=== PATIENT | female | born 1980 | race Caucasian/White ===

== ENCOUNTER 2017-07-25 18:11 | Inpatient (IN) | payer OTHER, SELFPAY ==
[2017-07-25 18:33] VITALS: BP 156/98
[2017-07-25] MEDS: miSOPROStol 25 MCG TABLET VAG (21:45)
[2017-07-25 23:13] LABS: Hematocrit 35.2 % (36-46); Hemoglobin 11.9 g/dL (12.0-16.0); Mean Corpuscular HGB Conc 33.8 % (30-36); Mean Corpuscular Volume 91.7 fL (80-100); Platelet Count 166 X10^3/uL (150-400); Red Blood Cell Count 3.84 X10^6/uL (4.0-5.2); Red Cell Distribution Width 14.6 % (11.6-14.8); White Blood Cell Count 9.1 X10^3/uL (4.5-11.0)
[2017-07-26] MEDS: HYDRALAZINE 20 MG/ML VIAL 5 MG IV ×2 (03:20→10:53)
[2017-07-26] MEDS: LACTATED RINGERS 1,000 ML 100 ML IV ×2 (06:01→07:04)
[2017-07-26] MEDS: OXYTOCIN PREMIX 30 UNIT/500 ML PLAST..BAG IV (09:55)
[2017-07-26] MEDS: IBUPROFEN 600 MG TABLET PO ×2 (16:53→22:43)
[2017-07-26] MEDS: LABETALOL 100 MG TABLET PO (20:50)
[2017-07-26] MEDS: DERMOPLAST SPRAY 20% 60 ML 1 SPRAY TOP (22:47)
[2017-07-27 05:48] LABS: Add Manual Diff / Slide Review NO; Basophils Percent Auto 0.3 % (0-2); Eosinophils Percent Auto 0.7 % (2-4); Hematocrit 26.6 % (36-46); Lymphocytes Percent Auto 19.1 % (25-40); Mean Corpuscular Hemoglobin 30.9 PG (26-34); Mean Corpuscular Volume 91.1 fL (80-100); Monocytes Percent Auto 6.1 % (3-14); Neutrophils Absolute Auto 8700 /uL (3000-5900); Neutrophils Percent Auto 73.8 % (50-75); Platelet Count 144 X10^3/uL (150-400); Red Blood Cell Count 2.91 X10^6/uL (4.0-5.2); Red Cell Distribution Width 14.7 % (11.6-14.8); White Blood Cell Count 11.8 X10^3/uL (4.5-11.0)
[2017-07-27 05:59] VITALS: TEMP 37
[2017-07-27] MEDS: IBUPROFEN 600 MG TABLET PO ×2 (05:59→14:21)
[2017-07-27] MEDS: LABETALOL 100 MG TABLET PO (08:47)
[2017-07-27] MEDS: PRENATAL VIT,CALC/IRON/FOLIC 1 TABLET 1 TAB PO (08:47)
[2017-07-27] MEDS: DOCUSATE 250 MG CAPSULE PO (08:49)
[2017-07-27 16:35] VITALS: BP 111/73; PULSE 82; RESP 16; TEMP 36.3
[2017-07-27] MEDS: MEASLES,MUMPS,RUBELLA VACC/PF 0.5 ML VIAL SUBCUT (17:55)
--- NOTE | 2017-07-28 09:20 | PM.OBDS.1 ---
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 Patient presented on the evening of 07/25/2017 for cervical ripening with Cytotec. She received 1 dose of 25 mcg intravaginally. By the morning of 07/26/2017 patient was 6 cm dilated. She had received an epidural overnight for pain management. Artificial rupture of membranes was performed at 9:47 a.m. on 07/26/2017. The patient progressed to complete dilation at 11:25 a.m.. After 2 and 0.5 hr of pushing and making very little progress, a vacuum was applied and with 2 contractions the vertex delivered without complication. She had a second-degree laceration which was repaired. Her course was unremarkable and she was discharged home on day # 1 which was 07/27/2017. She is to follow up at 6 weeks. She had some elevated blood pressure at the end of the , through the labor, and . She was started on labetalol 100 mg p.o. b.i.d.. She will continue this for at least the next 2 weeks. Peripartum Data Infant Delivery Method: Assisted Delivery (Vacuum assist) Laceration description: Perineal - 2nd Degree (2nd degree vaginal as well) Procedures: Vacuum assisted vaginal delivery Second-degree vaginal/perineal laceration repair Epidural analgesia Cervical ripening with Cytotec Augmentation of labor with Pitocin complications: none 1: Gender: Female (8 lb 8.65 oz, Apgars 8 at 1 min and 9 at 5 min) Disposition of : home Discharge Diagnosis (1) 40 weeks gestation of : Status: Acute (2) Status post vacuum-assisted vaginal delivery: Status: Acute (3) Elective induction of labor planned: Status: Acute Status at Discharge Functional status at discharge: independent ambulation Overall status at discharge: patient is progressing back to baseline Time Spent with Patient Total time spent providing and/or coordinating discharge services: Less than 30 minutes Objective Labs Result Diagrams: 07/27/17 05:30 Discharge Plan Discharge Plan Patient Disposition: Home, Self-Care Discharge comment: Call with fever >100.4, chills or bleeding vaginally more than a pad in an hour. ibuprofen 600mg every 6 hours as needed Discharge Med Rec/Prescriptions Prescriptions: New oxycodone-acetaminophen [Percocet] 5-325 mg tablet 2 tab PO Q4-6H PRN (Reason: pain) Qty: 20 RF: 0 labetalol 100 mg tablet 100 mg PO BID Qty: 30 RF: 0 Continue vit-iron fum-folic ac [Mynatal] 1 EACH capsule 1 cap PO QDAY Qty: 0 RF: 0 Follow up/Referrals: Lacie Bhatti MD [Primary Care Provider] - 6 Weeks ( at 4:00pm) Provider Discharge Instructions Diet: Diet as Tolerated Activity: Do not place anything in the vagina for 6 weeks. Cold/Heat Therapy: Apply ice as needed for comfort Wound Care Report to your healthcare provider any signs of infection, such as:: chills, fever, increased pain and unusual drainage Visit Report/Discharge Packet Instructions: DI for Labor and Delivery, Vaginal Visit Report Forms: Stroke Signs & Symptoms Discharge Data Primary Care Provider: Lacie Bhatti Attending Provider: Lacie Bhatti Admit Date/Time: 07/25/17 18:33 Discharges patient from system. Discharge Date/Time: 07/27/17 17:30
--- NOTE | 2017-09-09 12:56 | P.HPOB_ITS ---
OB HPI Date/Time Date of admission: 07/25/17 Date Patient Seen: 07/26/17 Time Patient Seen: 07:00 History of Present Illness Chief complaint: : 1 Para: 0 Estimated Date of Delivery: 07/26/17 Estimated Gestational Age (weeks): 40 Narrative: Melani Catalan is a 36 year old female 1 para 0 at 40 weeks gestation for cervical ripening and Pitocin induction of labor Indications Indication for induction OB: other (Advanced maternal age, 40 weeks gestation) History of Present care: good care Dating criteria: LMP confirmed by 1st trimester US Ultrasounds: normal 1st trimester US and normal mid trimester US Obstetrical complications: none Medical complications: other Narrative: Infertility Preadmission Labs Blood type: A (+) positive -: Antibody screen: negative, GBS status: negative, HBsAG: negative, HIV: negative, HSV 1: positive, HSV 2: negative and RPR/VDLR: negative -: Chlamydia screen: not detected and Gonorrhea screen: not detected -: Rubella: not immune and Varicella: immune HCT: 31.5 HCAB: negative Cell-free DNA: Normal girl Urine: Negative 1 hr GTT: 160 Prior (ies) History: Infertility Evaluation Evaluation Baseline heart rate: 140 Variability: Moderate (11-25) monitor accelerations: Present monitor decelerations: Absent Category of Tracing: I Cervical dilation (cm): 1 Cervical effacement (%): 50 station: -2 Laboratory results: Laboratory Tests 07/25/17 07/25/17 07/27/17 21:45 21:45 05:30 WBC 9.1 11.8 H RBC 3.84 L 2.91 L Hgb 11.9 L 9.0 L Hct 35.2 L 26.6 L MCV 91.7 91.1 MCH 31.0 30.9 MCHC 33.8 34.0 RDW 14.6 14.7 Plt Count 166 144 L Neut % (Auto) 73.8 Lymph % (Auto) 19.1 L [place] % (Auto) 6.1 Eos % (Auto) 0.7 L Baso % (Auto) 0.3 Neut # (Auto) 8700 H Blood Type A Positive Antibody Screen Negative PFSH Surgical History History of third molar tooth extraction Family History Father Age: 63 CAD (coronary artery disease) A-fib Hypertension Grandfather Cancer Grandmother Cancer Mother Age: 64 Hypothyroidism Grandmother Breast cancer Social History household members: spouse pets and animals: Yes education level: other 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: Nondenominational seatbelt use: always helmet use: Yes (Bike) water heater temp set < 120 deg: Yes working smoke detector in home: Yes fire extinguisher in home: Yes carbon monox detector in home: Yes firearms in home: Yes firearms unloaded and locked: Yes Smoking Status: Never smoker alcohol intake: current substance use type: does not use during the past year weight has: remained stable well-balanced diet: about half the time daily servings fruits/ve-4 caffeine: Yes (Rare/Occasional) eating out: 1-3 times/week frequency: 3-4 times per week duration: 30-45 minutes/day Meds Home Medications Medication Instructions Recorded Confirmed Type vit-iron fum-folic ac 1 cap PO QDAY #0 12/13/16 07/27/17 History [Mynatal] labetalol 100 mg PO BID #30 tab 07/27/17 Rx oxycodone-acetaminophen [Percocet] 2 tab PO Q4-6H PRN #20 tab 07/27/17 Rx norethindrone (contraceptive) 0.35 0.35 mg PO DAILY #28 tab 09/07/17 Rx mg tablet Allergies Allergy/AdvReac Type Severity Reaction Status Date / Time No Known Drug Allergies Allergy Verified 07/25/17 22:58 Exam Vital Signs (past 8 hours): Generally: Patient is sitting up in bed, no acute distress Fundal height: 40 cm Estimated weight: 8 lb Extremities: Negative Homans, no edema Objective Labs Result Diagrams: 07/27/17 05:30 Assessment and Plan (1) 40 weeks gestation of : Current visit: No Status: Deleted (2) Status post vacuum-assisted vaginal delivery: Current visit: No Status: Deleted (3) Elective induction of labor planned: Current visit: No Status: Deleted Plan: Assessment: 36-year-old 1 para 0 at 40 weeks gestation status post Cytotec Plan: Pitocin induction Epidural as necessary Expectant management of spontaneous vaginal delivery
--- NOTE | 2017-09-09 12:56 | PM.OBPRVD ---
Events: Labor Induction (Infertility, advanced maternal age) Delivery date: 07/26/17 Intrapartal events: Prolonged 2nd Stage > 2.5 hours Induction method: per misoprostol protocol Delivery augmentation: pitocin Delivery monitor: external FHT Route of delivery: vacuum extraction Indication for instrumentation: maternal exhaustion Laceration description: Perineal - 2nd Degree (2nd degree vaginal as well) Delivery repair: vicryl and chromic Estimated blood loss (mL): 250 Anesthesia type: Epidural Narrative: Patient complete and pushed for almost 3 hr. Vacuum assistance was performed due to maternal exhaustion. Delivery of a live female infant over an intact perineum at 2:06 p.m.. The remainder of the body delivered without difficulty and was placed on mom's abdomen. A nuchal cord x1 was reduced on the perineum. The placenta delivered intact at 2:12 p.m.. A second-degree perineal and vaginal laceration were repaired. Estimated blood loss 250 cc. Fundus was firm. Apgars 8 at 1 min and 9 at 5 min. . Epidural analgesia. Mom and stable to recovery. Baby 1: Infant gender: Female (8 lb 8.65 oz, Apgars 8 at 1 min and 9 at 5 min)
--- NOTE | 2017-09-09 13:02 | P.DS_ITS ---
History of Present Illness Date Patient Seen: 07/27/17 Time Patient Seen: 13:45 Chief complaint: Narrative: Patient is a 36-year-old 1 para 1 who presented for cervical ripening and induction of labor on 07/25/2017. She received 1 dose of Cytotec. She was given Pitocin for augmentation. She had a vacuum assisted vaginal delivery without complication. Discharge Providers Date of admission: 07/25/17 18:33 Primary care physician: Lacie Bhatti MD Consults: 07/26/17 15:32 Consult to Prom Burn Off Operator Routine Comment: Discharge provider: Lacie Bhatti MD Summary Discharge Diagnosis: 40 weeks gestation Infertility Advanced maternal age Cytotec cervical ripening Pitocin augmentation of labor Vacuum assisted vaginal delivery Status at Discharge Functional status at discharge: independent ambulation Overall status at discharge: patient is progressing back to baseline Exam Vital Signs (past 8 hours): Generally: Patient is sitting up in bed, no acute distress Fundus: Firm at U -1 Extremities: Negative Homans, no edema Objective Labs Result Diagrams: 07/27/17 05:30 Discharge Plan Discharge Plan Patient Disposition: Home, Self-Care Discharge comment: Call with fever >100.4, chills or bleeding vaginally more than a pad in an hour. ibuprofen 600mg every 6 hours as needed Discharge Med Rec/Prescriptions Prescriptions: New oxycodone-acetaminophen [Percocet] 5-325 mg tablet 2 tab PO Q4-6H PRN (Reason: pain) Qty: 20 RF: 0 labetalol 100 mg tablet 100 mg PO BID Qty: 30 RF: 0 Continue vit-iron fum-folic ac [Mynatal] 1 EACH capsule 1 cap PO QDAY Qty: 0 RF: 0 No Action norethindrone (contraceptive) [Ortho Micronor] 0.35 mg tablet 0.35 mg PO DAILY Qty: 28 RF: 11 Follow up/Referrals: Lacie Bhatti MD [Primary Care Provider] - 6 Weeks ( at 4:00pm) Provider Discharge Instructions Diet: Diet as Tolerated Wound Care Report to your healthcare provider any signs of infection, such as:: chills, fever, increased pain and unusual drainage Visit Report/Discharge Packet Instructions: DI for Labor and Delivery, Vaginal Visit Report Forms: Stroke Signs & Symptoms Discharge Data Primary Care Provider: Lacie Bhatti Attending Provider: Lacie Bhatti Admit Date/Time: 07/25/17 18:33 Discharges patient from system. Discharge Date/Time: 07/27/17 17:30
== END 2017-07-27 17:30 | disposition home or self-care (01) | DRG 775 ==
PROVIDERS: Admitting Provider Obstetrics & Gynecology; Family Provider Obstetrics & Gynecology; PCP Obstetrics & Gynecology; Visit Provider Obstetrics & Gynecology
DX: O13.4 Gestational [pregnancy-induced] hypertension without significant proteinuria, complicating childbirth (principal); O70.1 Second degree perineal laceration during delivery; Z3A.40 40 weeks gestation of pregnancy; Z37.0 Single live birth; O75.81 Maternal exhaustion complicating labor and delivery
CPT/HCPCS: 01967; 59050; 59400; 85025; 85027; 86850; 86900; 86901; G0378; G0379; J0360; J2590; J3010

== ENCOUNTER → 2017-12-13 14:00 | Outpatient (CLI) | payer OTHER, SELFPAY | PROVIDERS: Family Provider Obstetrics & Gynecology; PCP Obstetrics & Gynecology | DX: Z23 Encounter for immunization (principal) | CPT/HCPCS: 90471; 90686 ==

== ENCOUNTER → 2018-12-12 10:04 | Outpatient (CLI) | payer OTHER, SELFPAY | PROVIDERS: PCP Obstetrics & Gynecology | DX: Z23 Encounter for immunization (principal) | CPT/HCPCS: 90471; 90686 ==

== ENCOUNTER → 2019-01-18 18:56 | Outpatient (ROUT) | payer OTHER, SELFPAY ==
[2019-01-18 20:28] LABS: Urine N gonorrhoeae NOT DETECTED
[2019-01-18 20:32] LABS: Urine Chlamydia NOT DETECTED
== END ==
PROVIDERS: PCP Obstetrics & Gynecology; Visit Provider Obstetrics & Gynecology
DX: Z11.3 Encounter for screening for infections with a predominantly sexual mode of transmission (principal); Z34.81 Encounter for supervision of other normal pregnancy, first trimester; Z3A.09 9 weeks gestation of pregnancy
CPT/HCPCS: 87491; 87591

== ENCOUNTER → 2019-02-20 16:22 | Outpatient (CLI) | payer OTHER, SELFPAY ==
[2019-02-20 18:39] LABS: Specimen Label NATERA
== END ==
PROVIDERS: PCP Obstetrics & Gynecology; Visit Provider Obstetrics & Gynecology
DX: O09.522 Supervision of elderly multigravida, second trimester (principal); Z3A.14 14 weeks gestation of pregnancy
CPT/HCPCS: 36415; 99001

== ENCOUNTER → 2019-03-31 10:58 | Outpatient (CLI) | payer OTHER, SELFPAY ==
[2019-03-31 11:54] LABS: Appearance Urine UA CLEAR; Bilirubin Urine UA NEGATIVE (NEGATIVE); Color Urine UA YELLOW; Glucose Urine UA NEGATIVE (Negative); Ketones Urine UA NEGATIVE (NEGATIVE); Leukocyte Esterase Urine UA TRACE (NEGATIVE); Nitrite Urine UA NEGATIVE (Negative); Occult Blood Urine UA NEGATIVE (Negative); Protein Urine UA NEGATIVE (Negative); Specific Gravity Urine UA 1.015 (1.000-1.035); Urobilinogen Urine UA 0.2 E.U./dL (0.2)
[2019-03-31 11:56] LABS: Bacteria Urine None Seen; RBC Urine None Seen (0-5/HPF)
[2019-03-31 11:57] LABS: Add Manual Diff / Slide Review NO; Basophils Absolute Auto 0 /uL (0-100); Basophils Percent Auto 0.1 % (0-2); Eosinophils Absolute Auto 100 /uL (0-450); Hematocrit 33.3 % (36-46); Hemoglobin 11.4 g/dL (12.0-16.0); Lymphocytes Absolute Auto 1900 /uL (1100-4500); Lymphocytes Percent Auto 21.8 % (25-40); Mean Corpuscular HGB Conc 34.1 % (30-36); Mean Corpuscular Hemoglobin 31.4 PG (26-34); Monocytes Absolute Auto 400 /uL (0-900); Monocytes Percent Auto 4.5 % (3-14); Neutrophils Absolute Auto 6300 /uL (1500-7000); Neutrophils Percent Auto 72.6 % (50-75); Platelet Count 250 X10^3/uL (150-400); Red Blood Cell Count 3.62 X10^6/uL (4.0-5.2); Red Cell Distribution Width 13.8 % (11.6-14.8); White Blood Cell Count 8.7 X10^3/uL (4.5-11.0)
[2019-03-31 12:12] LABS: WBC Urine 1-5/HPF (0-5/HPF)
[2019-04-01 15:45] LABS: Hepatitis B Surface Antigen NEGATIVE s/c (NEGATIVE); Rubella Antibody IgG 17.7 IU/mL (>15)
[2019-04-01 16:01] LABS: HIV 1 & 2 Ab/Ag 4th Gen Combo NEGATIVE (NEGATIVE); Hep C Virus Ab w/Reflex Quant NEGATIVE s/c (NEGATIVE)
[2019-04-02 17:07] LABS: RPR Screen Nonreactive (Nonreactive)
== END ==
PROVIDERS: PCP Obstetrics & Gynecology; Visit Provider Obstetrics & Gynecology
DX: Z34.81 Encounter for supervision of other normal pregnancy, first trimester (principal)
CPT/HCPCS: 80055; 81003; 81015; 86787; 86803; 86850; 86900; 86901; 87086; 87389

== ENCOUNTER → 2019-04-11 07:36 | Outpatient (CLI) | payer OTHER, SELFPAY ==
--- NOTE | 2019-04-11 07:37 | DI.US.S_ITS ---
PROCEDURE: US OB >= 14 WEEKS FETUS INDICATIONS: ANATOMY OUTSIDE/PRIOR DATING DATA: First dating scan (date and location): 01/18/19. Estimated date of delivery (TRACY) from first dating scan: 08/18/19. TECHNIQUE: Real-time scanning was performed of the fetus, with image documentation and biometric measurements. Endovaginal scanning: No COMPARISON: [facility], , OB <= 14 WEEKS FETUS, 02/20/2019, 16:01. FINDINGS: General: A single living intrauterine gestation is present. Presentation: Breech. Placenta: Placental position is right femoral, without previa. Amniotic fluid index: 10.3 cm, normal range is 5-24 cm. heart rate: 120 beats per minute. Maternal cervical canal: 4.4 cm long. Normal lower limit is 2.5 cm. biometrics: Biparietal diameter: 21 weeks 5 days Head circumference: 21 weeks 4 days Abdominal circumference: 21 weeks 6 days Femur length: 21 weeks 2 days Estimated gestational age from initial scan: 21 weeks 4 days Composite gestational age from present scan: 21 weeks 4 days Estimated weight and percentile: 437 g; 46 percentile Measurement variability for biometric dating: +/- 7 days from 14 weeks to 15 weeks 6 days gestation, +/- 10 days from 16 weeks to 21 weeks 6 days gestation, +/- 2 weeks from 22 weeks to 27 weeks 6 days gestation, +/- 3 weeks for 28 weeks gestation or later. weight reference: 4500 g or EFW >90/95% is considered macrosomia or large for gestational age. EFW <10% is small for gestational age. EFW 5% or less is considered intra-uterine growth restriction. Anatomic survey: Neuro: Ventricles are non-dilated at less than 10 mm. Cisterna magna is normal at 3-11 mm. Cerebellum is normal in size and morphology. Nuchal skin fold: Normal at less than 6 mm between 14-21 weeks gestational age. Face: Nose and lips, facial profile are normal. Spine: No evidence for spina bifida. Heart: 4-chambered heart is present, with normal ventricular outflow tracts. Diaphragm: Diaphragm is intact. Stomach: Left-sided stomach is present. Kidneys: No hydronephrosis. Normal is less than 5 mm in 2nd trimester, less than 7 mm in 3rd trimester. Cord: 3-vessel cord has orthotopic insertion. Bladder: Normal in size. Extremities: All 4 extremities identified. IMPRESSION: 1. Single living IUP redemonstrated and interval growth is normal. 2. Normal anatomic survey. Dictated by: Wisam Cooper [facility] Interpreted: Nakia Ellison MD on 04/11/2019 at 9:43 Approved by: Nakia Ellison M.D. on 04/11/2019 at 16:29
== END ==
PROVIDERS: PCP Family Medicine; Visit Provider Family Medicine
DX: Z36.89 Encounter for other specified antenatal screening (principal); Z3A.21 21 weeks gestation of pregnancy
CPT/HCPCS: 76811

== ENCOUNTER → 2019-05-21 10:27 | Outpatient (CLI) | payer OTHER, SELFPAY ==
[2019-05-21 12:24] LABS: Hematocrit 32.6 % (36-46); Hemoglobin 11.3 g/dL (12.0-16.0)
[2019-05-21 12:42] LABS: GTT (PREG) 1 Hour PP 50gm Dose 150 mg/dL (76-139)
== END ==
PROVIDERS: PCP Family Medicine; Referring Provider Family Medicine; Visit Provider Family Medicine
DX: Z34.90 Encounter for supervision of normal pregnancy, unspecified, unspecified trimester (principal); Z3A.26 26 weeks gestation of pregnancy
CPT/HCPCS: 36415; 82950; 85014; 85018

== ENCOUNTER → 2019-07-24 09:03 | Outpatient (CLI) | payer OTHER, SELFPAY ==
[2019-07-25 12:12] LABS: Strep Grp B PCR NEG for Grp B Strep
== END ==
PROVIDERS: PCP Family Medicine; Visit Provider Family Medicine
DX: Z34.90 Encounter for supervision of normal pregnancy, unspecified, unspecified trimester (principal); Z3A.36 36 weeks gestation of pregnancy
CPT/HCPCS: 87653

== ENCOUNTER → 2019-08-14 09:26 | Outpatient (CLI) | payer OTHER, SELFPAY ==
[2019-08-15 15:00] LABS: COVID19 Sendout NOT DETECTED (Not Detect)
== END ==
PROVIDERS: PCP Family Medicine; Visit Provider Registered Nurse
DX: Z01.812 Encounter for preprocedural laboratory examination (principal)
CPT/HCPCS: 87635

== ENCOUNTER 2019-08-15 18:46 | Inpatient (IN) | payer OTHER, SELFPAY ==
[2019-08-15] MEDS: miSOPROStoL 25 MCG TABLET VAG (20:00)
[2019-08-15 21:06] LABS: Hematocrit 33.3 % (36-46); Hemoglobin 11.6 g/dL (12.0-16.0); White Blood Cell Count 7.7 X10^3/uL (4.5-11.0)
[2019-08-15 21:07] LABS: Add Manual Diff / Slide Review NO; Basophils Percent Auto 0.2 % (0-2); Eosinophils Percent Auto 0.5 % (2-4); Lymphocytes Absolute Auto 1800 /uL (1100-4500); Lymphocytes Percent Auto 23.9 % (25-40); Mean Corpuscular HGB Conc 34.7 % (30-36); Mean Corpuscular Hemoglobin 32.1 PG (26-34); Mean Corpuscular Volume 92.5 fL (80-100); Monocytes Percent Auto 9.8 % (3-14); Neutrophils Absolute Auto 5000 /uL (1500-7000); Neutrophils Percent Auto 65.6 % (50-75); Platelet Count 187 X10^3/uL (150-400); Red Cell Distribution Width 13.9 % (11.6-14.8)
[2019-08-15 21:08] LABS: Basophils Absolute Auto 0 /uL (0-100); Eosinophils Absolute Auto 0 /uL (0-450); Monocytes Absolute Auto 700 /uL (0-900)
[2019-08-15 21:24] LABS: Aspartate Aminotransferase 19 IU/L (14-36); BUN Creatinine Ratio 20.3 (6-22); Blood Urea Nitrogen 12 mg/dL (7-17); Estimated Glomerular Filt Rate > 60.0 mL/min (>60); Uric Acid 5.5 mg/dL (2.5-6.2)
[2019-08-15 21:35] LABS: Creatinine Urine Random 97.5 mg/dL; Protein (Total) Urine Random 9 mg/dL (0-12); Protein Creatinine Ratio Urine 0.09 GRAM/24H
[2019-08-15] MEDS: ZOLPIDEM 5 MG TABLET PO (22:06)
[2019-08-16] MEDS: miSOPROStoL 25 MCG TABLET VAG (00:04)
[2019-08-16 01:38] VITALS: BP 137/97
--- NOTE | 2019-08-16 06:20 | P.HPOB_ITS ---
OB HPI Date/Time Date of admission: 08/16/19 Date Patient Seen: 08/16/19 Time Patient Seen: 05:25 History of Present Condition Chief complaint: INDUCTION : 2 Para: 1 Estimated Date of Delivery: 08/18/19 Estimated Gestational Age (weeks): 39w5d Narrative: Melani Catalan is a 38 year old at 39 weeks and 5 days gestation. Patient came in last night for induction for advanced maternal age. has been uncomplicated. 1 hour GTT was mildly elevated however blood sugar monitoring was normal. Remained her was normal. Indications Indication for induction OB: other (Advanced maternal age) History of Present care: good care, initiated at week # (9), number of visits (12) and pounds weight gain (32) Dating criteria: LMP confirmed by 1st trimester US Ultrasounds: normal mid trimester US Obstetrical complications: none Medical complications: none Preadmission Labs Blood type: A (+) positive -: Antibody screen: negative, GBS status: negative, HBsAG: negative, HIV: negative and RPR/VDLR: negative -: Rubella: immune and Varicella: immune HCT: 33.3 HCAB: negative Cell-free DNA: Normal XY Urine: Negative 1 hr GTT: 150 Prior (ies) History: 07/26/17 Vacuum assisted VD for maternal exhaustion at 40 weeks to a 8 lb 8 oz female. 8 hour labor with epidural. Breast fed 15 months. noneSamantha Evaluation Evaluation Laboratory results: Laboratory Tests 08/15/19 08/15/19 08/15/19 20:25 20:25 20:25 WBC Cancelled 7.7 RBC Cancelled 3.60 L Hgb Cancelled 11.6 L Hct Cancelled 33.3 L MCV Cancelled 92.5 MCH Cancelled 32.1 MCHC Cancelled 34.7 RDW Cancelled 13.9 Plt Count Cancelled 187 Neut % (Auto) Cancelled 65.6 Lymph % (Auto) Cancelled 23.9 L [place] % (Auto) Cancelled 9.8 Eos % (Auto) Cancelled 0.5 L Baso % (Auto) Cancelled 0.2 Neut # (Auto) Cancelled 5000 Lymph # (Auto) Cancelled 1800 [place] # (Auto) Cancelled 700 Eos # (Auto) Cancelled 0 Baso # (Auto) Cancelled 0 BUN Creatinine Estimated GFR BUN/Creatinine Ratio Uric Acid AST U Random Total Protein Urine Creatinine Protein/Creatinin Ratio Blood Type A Positive Antibody Screen Negative 08/15/19 08/15/19 20:59 20:59 WBC RBC Hgb Hct MCV MCH MCHC RDW Plt Count Neut % (Auto) Lymph % (Auto) [place] % (Auto) Eos % (Auto) Baso % (Auto) Neut # (Auto) Lymph # (Auto) [place] # (Auto) Eos # (Auto) Baso # (Auto) BUN 12 Creatinine 0.59 Estimated GFR > 60.0 BUN/Creatinine Ratio 20.3 Uric Acid 5.5 AST 19 U Random Total Protein 9 Urine Creatinine 97.5 Protein/Creatinin Ratio 0.09 Blood Type Antibody Screen PFSH Medical History Advanced maternal age (AMA) in (Acute) Anxiety (Chronic) Chicken pox (Resolved 1986) Depression (Chronic 1998) Surgical History Anesthesia (Resolved) History of gynecologic surgery (Resolved) History of third molar tooth extraction (Resolved) Family History Father Age: 65 CAD (coronary artery disease) A-fib Hypertension Grandfather Cancer Pancreatic cancer Grandmother Cancer Breast cancer Mother Age: 66 Hypothyroidism Grandmother Breast cancer Grandfather Stroke Dementia Social History marital status: number of children: 1 household members: spouse and children pets and animals: Yes education level: other occupational status: employed 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: Mosque seatbelt use: always helmet use: Yes (Bike) water heater temp set < 120 deg: Yes working smoke detector in home: Yes fire extinguisher in home: Yes carbon monox detector in home: Yes firearms in home: Yes firearms unloaded and locked: Yes Smoking Status: Never smoker alcohol intake: current substance use type: does not use during the past year weight has: remained stable well-balanced diet: about half the time daily servings fruits/ve-4 caffeine: Yes (Rare/Occasional) eating out: 1-3 times/week Type(s) of exercise: walking, other, running and yoga frequency: 3-4 times per week duration: 30-45 minutes/day Meds Home Medications and Allergies Home Medications Medication Instructions Recorded Confirmed Type Mynatal 1 cap PO QDAY #0 12/13/16 08/16/19 History cholecalciferol (vitamin D3) 25 1,000 unit PO DAILY 01/09/19 08/16/19 History mcg (1,000 unit) capsule Allergies Allergy/AdvReac Type Severity Reaction Status Date / Time No Known Drug Allergies Allergy Verified 08/14/19 09:40 Exam Vital Signs (past 8 hours): - 08/16/19 01:38 Blood Pressure 137/97 H Const General: healthy appearing and comfortable HENMT Head: normal to inspection Ears: hearing grossly normal bilaterally Nose: external nose normal Face and sinus: normal facial exam Mouth: oral mucosae normal Eyes General: appearance normal, both eyes and all related structures Neck Neck: normal visual inspection Resp Effort & Inspection: normal respiratory effort Back/Spine/Pelvis Back: normal to inspection Skin General: no rashes or lesions noted Extrem General: normal to inspection and no pedal edema Objective Labs Result Diagrams: 08/15/19 20:25 08/15/19 20:59 Labs: Laboratory Results - last 24 hr 08/15/19 08/15/19 08/15/19 20:25 20:25 20:25 WBC Cancelled 7.7 RBC Cancelled 3.60 L Hgb Cancelled 11.6 L Hct Cancelled 33.3 L MCV Cancelled 92.5 MCH Cancelled 32.1 MCHC Cancelled 34.7 RDW Cancelled 13.9 Plt Count Cancelled 187 Neut % (Auto) Cancelled 65.6 Lymph % (Auto) Cancelled 23.9 L [place] % (Auto) Cancelled 9.8 Eos % (Auto) Cancelled 0.5 L Baso % (Auto) Cancelled 0.2 Neut # (Auto) Cancelled 5000 Lymph # (Auto) Cancelled 1800 [place] # (Auto) Cancelled 700 Eos # (Auto) Cancelled 0 Baso # (Auto) Cancelled 0 BUN Creatinine Estimated GFR BUN/Creatinine Ratio Uric Acid AST U Random Total Protein Urine Creatinine Protein/Creatinin Ratio Blood Type A Positive Antibody Screen Negative 08/15/19 08/15/19 20:59 20:59 WBC RBC Hgb Hct MCV MCH MCHC RDW Plt Count Neut % (Auto) Lymph % (Auto) [place] % (Auto) Eos % (Auto) Baso % (Auto) Neut # (Auto) Lymph # (Auto) [place] # (Auto) Eos # (Auto) Baso # (Auto) BUN 12 Creatinine 0.59 Estimated GFR > 60.0 BUN/Creatinine Ratio 20.3 Uric Acid 5.5 AST 19 U Random Total Protein 9 Urine Creatinine 97.5 Protein/Creatinin Ratio 0.09 Blood Type Antibody Screen Assessment and Plan Assessment and Plan Assessment and Plan narrative: 38-year-old at 39 weeks and 5 days gestation here for induction for advanced maternal age. She came in last night for Cytotec for cervical ripening. She progressed into labor sometime after the second dose of Cytotec. At 4:44 a.m. she had leaking of fluid. Cervical exam at that time was 7/100/0. I was called at 5:08 a.m.. Patient delivered precip itously at 5:21 a.m. with Aziza Champagne RN. I arrived prior to delivery of the placenta. Please see delivery note.
[2019-08-16] MEDS: LANOLIN OINT 7 GM 1 APPLIC TOP (07:01)
[2019-08-16] MEDS: DERMOPLAST SPRAY 20% 60 ML 1 SPRAY TOP (07:01)
[2019-08-16] MEDS: miSOPROStoL 200 MCG TABLET 400 MCG PO (07:01)
--- NOTE | 2019-08-16 07:23 | PM.OBPRVD ---
Labor & Delivery Delivery date: 08/16/19 Intrapartal events: Precipitous Labor < 3 hours Cervical ripening method: per misoprostal protocol Delivery monitor: external FHT Route of delivery: L&D Laceration Description: Perineal - 2nd Degree (And vaginal second-degree) Delivery repair: vicryl Estimated blood loss (mL): 350 Anesthesia type: None Narrative: BRIEF HISTORY: Patient is a 38-year-old GP at 39 weeks 5 days who gave on 08/16/19 at 5:21 a.m.. TRACY: 08/18/19 Hospital problems: 39 weeks of Advanced maternal age Patient presented to the center for cervical ripening with Cytotec the evening of 08/15/19. She received 2 doses of Cytotec. After the second dose contractions became regular though not particularly painful. At 4:44 a.m. patient reported leaking of fluid. She was found to be 7 cm and 0 station. Shortly thereafter contractions became painful and I was called to come to the hospital at 5:08 a.m.. Precipitous delivery occurred at 5:21 a.m. with the RN in attendance. Delivery was complicated by a brief shoulder dystocia which resolved with suprapubic pressure. When I arrived was on mother's chest and appeared well. Placenta delivered at 5:32 a.m. and appeared intact with a three-vessel cord. Patient was found to have a second-degree vaginal laceration and second degree perineal laceration. After anesthesia was found be adequate with lidocaine, lacerations were repaired in the usual fashion with 3-0 chromic with good hemostasis. IM Pitocin given after laceration repair. Fundus was firm. After delivery patient was doing well with her infant Brant and at bedside. Breast-feeding initiated shortly after delivery. Baby 1: Infant gender: Male Presentation: vertex Placenta delivery description: Spontaneous cord vessel description: 3 Vessels score (1 min): 7 score (5 min): 9
[2019-08-16] MEDS: KETOROLAC 30 MG/ML VIAL IV (08:00)
[2019-08-16] MEDS: OXYTOCIN 10 UNIT/ML VIAL 20 UNIT (08:06)
[2019-08-16 15:37] VITALS: TEMP 37.2
[2019-08-16] MEDS: IBUPROFEN 600 MG TABLET PO ×2 (15:37→21:27)
[2019-08-17] MEDS: IBUPROFEN 600 MG TABLET PO ×2 (04:45→11:40)
[2019-08-17 06:55] LABS: Add Manual Diff / Slide Review NO; Basophils Absolute Auto 0 /uL (0-100); Basophils Percent Auto 0.4 % (0-2); Eosinophils Absolute Auto 100 /uL (0-450); Eosinophils Percent Auto 0.8 % (2-4); Hemoglobin 9.9 g/dL (12.0-16.0); Lymphocytes Absolute Auto 2400 /uL (1100-4500); Lymphocytes Percent Auto 27.8 % (25-40); Mean Corpuscular HGB Conc 35.5 % (30-36); Mean Corpuscular Hemoglobin 32.9 PG (26-34); Mean Corpuscular Volume 92.6 fL (80-100); Monocytes Absolute Auto 700 /uL (0-900); Monocytes Percent Auto 7.7 % (3-14); Neutrophils Absolute Auto 5500 /uL (1500-7000); Neutrophils Percent Auto 63.3 % (50-75); Platelet Count 164 X10^3/uL (150-400); Red Blood Cell Count 3.02 X10^6/uL (4.0-5.2); Red Cell Distribution Width 13.6 % (11.6-14.8); White Blood Cell Count 8.7 X10^3/uL (4.5-11.0)
[2019-08-17 07:04] LABS: Alanine Aminotransferase 10 IU/L (<35); Albumin Globulin Ratio 1.2 (1.0-2.8); Alkaline Phosphatase 100 U/L (38-126); Aspartate Aminotransferase 26 IU/L (14-36); BUN Creatinine Ratio 21.7 (6-22); Bilirubin Total 0.2 mg/dL (0.2-1.3); Blood Urea Nitrogen 13 mg/dL (7-17); Carbon Dioxide 26 mmol/L (22-32); Chloride 105 mmol/L (98-107); Estimated Glomerular Filt Rate > 60.0 mL/min (>60); Globulin 2.5 g/dL (1.7-4.1); Glucose 75 mg/dL (70-100); HEMOLYSIS < 15 (0-50); Sodium 134 mmol/L (137-145); Total Protein 5.5 g/dL (6.3-8.2)
--- NOTE | 2019-08-17 08:01 | PM.OBDS.1 ---
Discharge Providers Provider Date of admission: 08/15/19 18:46 Discharge Date: 08/17/19 Primary care physician: Dina Murray DO Consults: 08/17/19 06:21 Consult to Hospitality Intern Routine Comment: Discharge provider: Dina Murray DO Summary Hospital Course Date Patient Seen: 08/17/19 Time Patient Seen: 07:40 Procedures: Spontaneous vaginal delivery Hospital Course: Patient is a 38 year old G2 now P2 after uncomplicated precipitous vaginal delivery on 08/16/19 at 39 weeks and 5 days gestation. Patient came in for induction due to AMA. She received 2 doses of Cytotec then progressed into labor. Active labor was about 30 minutes. Delivery was precipitous and attended by the nurses only. There was a brief shoulder dystocia which resolved with suprapubic pressure. Placenta delivery and laceration repair done with Dr. Murray. patient had some higher blood pressures though not persistently elevated. Pre-eclampsia labs were normal on admission and . Day of discharge blood pressure was 125/77 without medication and patient denied MURRAY, vision changes, abdominal pain or new edema. Vaginal bleeding was moderate as expected. Pain controlled with minimal medication. Patient was ambulating, eating, voiding and passing flatus. was going well. Infant underwent frenotomy. Advised patient to call for fevers, severe pain or bleeding through more than a pad an hour. Follow up for visit in six weeks. Peripartum Data Delivery Method: Natural Vaginal Laceration description: Perineal - 2nd Degree (and second degree vaginal) complications: none [place] 1: Gender: Male Disposition of : home Discharge Diagnosis (1) 39 weeks gestation of : Status: Acute (2) Advanced maternal age (AMA) in : Status: Acute (3) Spontaneous vaginal delivery: Status: Inactive Problem Details: x2 Status at Discharge Functional status at discharge: independent ambulation Overall status at discharge: patient is progressing back to baseline Time Spent with Patient Time attestation: Total time spent providing and/or coordinating discharge services: Time spent: Less than 30 minutes Objective Labs Result Diagrams: 08/17/19 06:28 08/17/19 06:28 Labs: Laboratory Results - last 24 hr 08/17/19 08/17/19 06:28 06:28 WBC 8.7 RBC 3.02 L Hgb 9.9 L Hct 28.0 L MCV 92.6 MCH 32.9 MCHC 35.5 RDW 13.6 Plt Count 164 Neut % (Auto) 63.3 Lymph % (Auto) 27.8 [place] % (Auto) 7.7 Eos % (Auto) 0.8 L Baso % (Auto) 0.4 Neut # (Auto) 5500 Lymph # (Auto) 2400 [place]iwether # (Auto) 700 Eos # (Auto) 100 Baso # (Auto) 0 Sodium 134 L Potassium 4.0 Chloride 105 Carbon Dioxide 26 BUN 13 Creatinine 0.60 Estimated GFR > 60.0 BUN/Creatinine Ratio 21.7 Glucose 75 Calcium 9.0 Total Bilirubin 0.2 AST 26 ALT 10 Alkaline Phosphatase 100 Total Protein 5.5 L Albumin 3.0 L Globulin 2.5 Albumin/Globulin Ratio 1.2 Exam Vital Signs (past 8 hours): Temperature 98.3? blood pressure 125/77 heart rate 86 respirations 16 Narrative Exam Narrative: General: Awake and alert, no acute distress. HEENT: NCAT, EOMI, moist oral mucosa CV: Regular rate and rhythm, no murmurs, rubs or gallops Lungs: CTAB, no wheezes, rales, or rhonchi Abdomen: Soft, nontender; bowel tones active; uterus firm 1 cm below umbilicus Extremities: Warm, no edema, 2+ pedal pulses bilaterally Discharge Plan Discharge Plan Patient Disposition: Home Discharge orders & Medications Prescriptions: Continued Mynatal 1 EACH capsule 1 cap PO QDAY Qty: 0 RF: 0 cholecalciferol (vitamin D3) 1,000 unit capsule 1,000 unit PO DAILY RF: 0 Follow up/Referrals: Dina Murray DO [Primary Care Provider] - 6 Weeks (Please follow up with Dr. Murray on September 26 at 10 am. Please call if you have any questions/concerns or if you need to reschedule.) Visit Report/Discharge Packet Instructions: Depression Stand Alone Forms: Discharge: Care Visit Report Forms: Patient Portal/API, Stroke Signs & Symptoms Discharge Data Primary Care Provider: Dina Murray
[2019-08-17] MEDS: DOCUSATE 100 MG CAPSULE PO (09:16)
[2019-08-17] MEDS: PRENATAL VIT,CALC/IRON/FOLIC 1 TABLET 1 TAB PO (09:16)
[2019-08-17 10:51] VITALS: BP 125/77; PULSE 86; RESP 16; TEMP 36.8
[2019-08-17] MEDS: MEASLES,MUMPS,RUBELLA VACC/PF 0.5 ML VIAL SUBCUT (13:17)
== END 2019-08-17 13:25 | disposition home or self-care (01) | DRG 807 ==
PROVIDERS: Admitting Provider Family Medicine; PCP Family Medicine; Referring Provider Family Medicine; Visit Provider Family Medicine
DX: O70.1 Second degree perineal laceration during delivery (principal); Z37.0 Single live birth; Z3A.39 39 weeks gestation of pregnancy; O62.3 Precipitate labor; Z01.812 Encounter for preprocedural laboratory examination
CPT/HCPCS: 36415; 59050; 59400; 80053; 82570; 84156; 84450; 84550; 85025; 86850; 86900; 86901; 87635; G0379; J1885; J2590; S0191

== ENCOUNTER → 2020-01-03 | Outpatient (CLI) | payer OTHER, SELFPAY | PROVIDERS: PCP Family Medicine; Referring Provider Internal Medicine; Visit Provider Internal Medicine | DX: Z23 Encounter for immunization (principal) | CPT/HCPCS: 90471; 90686 ==

== ENCOUNTER → 2020-02-02 12:08 | Outpatient (CLI) | payer OTHER, SELFPAY ==
[2020-02-02 13:13] LABS: Influenza A - CEPHEID Flu A NEGATIVE (NEGATIVE); Influenza B - CEPHEID Flu B NEGATIVE (NEGATIVE)
[2020-02-02 13:36] LABS: COVID19 -Nasal RAPID Negative (Negative)
== END ==
PROVIDERS: PCP Family Medicine; Visit Provider Physician Assistant
DX: R68.89 Other general symptoms and signs (principal)
CPT/HCPCS: 87502; 87635

== ENCOUNTER → 2020-03-13 07:45 | Outpatient (CLI) | payer OTHER, SELFPAY ==
[2020-03-13] MEDS: COVID-19 VACC(MODERNA-1)/PF 100 MCG/0.5 ML VIAL IM (07:52)
== END ==
PROVIDERS: PCP Family Medicine; Visit Provider Internal Medicine
DX: Z23 Encounter for immunization (principal)
CPT/HCPCS: 0011A; 91301

== ENCOUNTER → 2020-04-10 07:31 | Outpatient (CLI) | payer OTHER, SELFPAY ==
[2020-04-10] MEDS: COVID-19 VACC #2, MRNA(MOD) 100 MCG/0.5 ML VIAL IM (07:40)
== END ==
PROVIDERS: PCP Family Medicine; Visit Provider Internal Medicine
DX: Z23 Encounter for immunization (principal)
CPT/HCPCS: 0012A; 91301

== ENCOUNTER → 2020-12-19 | Outpatient (CLI) | payer OTHER, SELFPAY | PROVIDERS: PCP Family Medicine; Referring Provider Internal Medicine; Visit Provider Internal Medicine | DX: Z23 Encounter for immunization (principal) | CPT/HCPCS: 90471; 90686 ==

== ENCOUNTER → 2021-01-28 03:23 | Outpatient (CLI) | payer OTHER, SELFPAY ==
[2021-01-28 04:51] LABS: COVID19 - ADMIT (NP swab/PCR) POSITIVE (Negative)
== END ==
PROVIDERS: PCP Family Medicine; Referring Provider Internal Medicine; Visit Provider Internal Medicine
DX: U07.1 COVID-19 (principal)
CPT/HCPCS: U0003

== ENCOUNTER → 2022-01-04 17:31 | Outpatient (CLI) | payer OTHER, SELFPAY | PROVIDERS: PCP Family Medicine; Referring Provider Internal Medicine; Visit Provider Internal Medicine | DX: Z23 Encounter for immunization (principal) | CPT/HCPCS: 90471; 90686 ==

== ENCOUNTER → 2022-03-22 07:22 | Outpatient (CLI) | payer OTHER, SELFPAY ==
--- NOTE | 2022-03-22 | DI.MG.S_ITS ---
BILATERAL DIGITAL SCREENING MAMMOGRAM 3D/2D WITH CAD: 03/22/2022 CLINICAL: Baseline exam. Routine screening. Family history of breast cancer. No prior exams were available for comparison. There are scattered areas of fibroglandular density in both breasts (category b / 25%-50% glandular tissue). Current study was also evaluated with a Computer Aided Detection (CAD) system. No significant masses, calcifications, or other findings are seen in either breast. IMPRESSION: NEGATIVE There is no mammographic evidence of malignancy. A 1 year screening mammogram is recommended. This exam was interpreted at Station ID: [id number]. NOTE: For mammograms, a report in lay terms will be sent to the patient. Approximately 15% of breast malignancies will not be visualized mammographically. In the management of a palpable breast mass, a negative mammogram must not discourage biopsy of a clinically suspicious lesion. Electronically Signed By: Dereck morales/guy:03/22/2022 08:50:13 letter sent: Normal Exam ACR BI-RADS Category 1: Negative 3341F
== END ==
PROVIDERS: PCP Family Medicine; Referring Provider Family Medicine; Visit Provider Family Medicine
DX: Z12.31 Encounter for screening mammogram for malignant neoplasm of breast (principal); Z80.3 Family history of malignant neoplasm of breast
CPT/HCPCS: 77063; 77067

== ENCOUNTER → 2022-12-26 03:25 | Outpatient (CLI) | payer OTHER, SELFPAY | PROVIDERS: PCP Family Medicine; Referring Provider Family Medicine; Visit Provider Family Medicine | DX: Z23 Encounter for immunization (principal) | CPT/HCPCS: 90471; 90686 ==

== ENCOUNTER → 2023-05-05 08:41 | Outpatient (CLI) | payer OTHER, SELFPAY ==
[2023-05-05 09:46] LABS: Cholesterol 220 mg/dL (140-199); Glucose 94 mg/dL (70-100); HDL Cholesterol 99 mg/dL (40-60); LDL Cholesterol Calculated 102 mg/dL (<100); Triglycerides 97 mg/dL (35-150)
--- NOTE | 2023-05-05 12:40 | DI.MG.S_ITS ---
BILATERAL DIGITAL SCREENING MAMMOGRAM 3D/2D WITH CAD: 05/05/2023 CLINICAL: Routine screening. Family history of breast cancer. Comparison is made to exam dated: 03/22/2022 mammogram - [facility]. There are scattered areas of fibroglandular density in both breasts (category b / 25%-50% glandular tissue). Current study was also evaluated with a Computer Aided Detection (CAD) system. No significant masses, calcifications, or other findings are seen in either breast. There has been no significant interval change. IMPRESSION: NEGATIVE There is no mammographic evidence of malignancy. A 1 year screening mammogram is recommended. Based on the Tyrer Cuzick model (a risk assessment model) the patient's lifetime risk is 19.4% and her 10 year risk is 3.0%. According to the ACR, ACS, and NCCN guidelines, an annual breast MRI exam along with mammogram is recommended if the patient's lifetime risk is 20% or greater. This exam was interpreted at Station ID: [id number]. NOTE: For mammograms, a report in lay terms will be sent to the patient. Approximately 15% of breast malignancies will not be visualized mammographically. In the management of a palpable breast mass, a negative mammogram must not discourage biopsy of a clinically suspicious lesion. Electronically Signed By: Cade gambino/guy:05/05/2023 16:10:53 letter sent: Normal Exam ACR BI-RADS Category 1: Negative 3341F
== END ==
PROVIDERS: PCP Family Medicine; Referring Provider Family Medicine; Visit Provider Family Medicine
DX: Z12.31 Encounter for screening mammogram for malignant neoplasm of breast (principal); Z13.9 Encounter for screening, unspecified
CPT/HCPCS: 36415; 77063; 77067; 80061; 82947

== ENCOUNTER 2023-09-23 08:15 | Outpatient (RCR) | payer OTHER, SELFPAY ==
--- NOTE | 2023-06-16 17:23 | PT.OIE ---
Current Diagnoses Stiffness of unspecified hip, not elsewhere classified (06/16/23) Postural lordosis, site unspecified (06/16/23) Other specified disorders of muscle (06/16/23) Stress incontinence (female) (male) (06/16/23) Pelvic and perineal pain (06/16/23) Past Medical History (Last Updated 04/22/23 @ 13:09 by Carisa Laura MD) Anxiety Chicken pox (1986) Depression (1998) History of infertility (12/28/16) Spontaneous vaginal delivery Past Surgical History (Last Reviewed 10/09/19 @ 12:46 by Dina Murray DO) Anesthesia History of gynecologic surgery History of third molar tooth extraction Visit Care Team Role Provider Type Carisa Laura MD Attending Provider Physician Family Provider Primary Care Provider Referring Provider Specialty: Family Practice Address: [address] [place] [address], [facility] Email: [email or web address] Physical Therapy Initial Evaluation PT-OP-A Visit Information Start: 06/10/23 18:37 Freq: Status: Active Protocol: Document 06/16/23 07:33 LRN (Rec: 06/16/23 12:32 LRN [id number]) Out-Patient Physical Therapy Visit Information Visit Information Visit Type Initial Evaluation Visit Start Time 07:34 Visit Stop Time 08:15 Visit Number 1 Evaluation Information Evaluation Date 06/16/23 Precautions Precautions 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 PT-OP-B Current Condition Start: 06/10/23 18:37 Freq: Status: Active Protocol: Document 06/16/23 07:33 LRN (Rec: 06/16/23 12:32 LRN [id number]) Current Condition History of Current Condition Onset Date 2018 Current Complaints Pain in L lower sacrum and a little urinary leakage with heavy lifting. History of Current Condition Pt reports during first she had pain in R side of lower sacrum and also had a litle light urinary incontinence. She currently has a little urinary incontinence if lifting heavy and if she doesn't urinate before running she will leak urine (on runs 2-5 miles). With running she reports sometimes the pelvis hurts running fast or downhill. She reports when bladder is full she leaks with coughing, sneezing and laughing. Prior Treatments and Tests None Developmental History Developmental History 2G, 2P. Both vaginal births ( 2017, 2019). Pt runs 3x/week. 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 Treatment Goals Patient/Caregiver Goals Decreased or eliminate R lower sacral pain. Decrease pelvic pain with downhill running or fast running. Eliminate stress urinary incontinence with lifting. 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 PT-OP-C Subjective Start: 06/10/23 18:37 Freq: Status: Active Protocol: Document 06/16/23 07:33 LRN (Rec: 06/16/23 12:32 LRN [id number]) Patient Questionnaires Pelvic Pain and Urgency/Frequency Patient Symptom Scale Pelvic Pain Score 7 PT-OP-I Pelvic Floor Start: 06/10/23 18:37 Freq: Status: Active Protocol: Document 06/16/23 07:33 LRN (Rec: 06/16/23 12:32 LRN [id number]) Pelvic Floor Assessment Urine Pelvic Floor Surgery Yes: .... Other Urinary Symptoms Urinary leakage if bladder is full. Leakage Size Small Leakage Cause Cough,Exercise,Lifting,Sneeze, Urge Leaks Per Day 2x/month Nocturia 1 Pads Used In 24 Hours 0 Bowel Other Bowel Symptoms On/off constipation and hemorrhoids. Bowel Movement Frequency 1-2 Ford Stool Chart Comments Types 3-4 Prolapse Uterine Prolapse Grade 1 Cystocele Grade 1 Rectocele Grade 1 Prolapse Comments Cystocele is only visible prolapse. Perineal Descent Bearing Present Contraction Ability Voluntary Contraction Weak Voluntary Relaxation Weak Manual Muscle Testing Left 1 Manual Muscle Testing Right 2 Manual Muscle Testing Anterior 1 Manual Muscle Testing Posterior 1 Muscle Endurance (Seconds) 2 Number of Quick Contractions In 10 5 Seconds Comments Pelvic Floor Comments Extra rectal tissue felt at PF clock 6. Uterus felt with digital insertion ~6.5 cm deep . Quick Contractions: Difficult to differentiate between contraction and relaxation. PT-OP-J Posture/Palpation/Skin Start: 06/10/23 18:37 Freq: Status: Active Protocol: Document 06/16/23 07:33 LRN (Rec: 06/16/23 12:32 LRN [id number]) Posture Evaluation Position Standing L-Spine Posture Increased Lordosis Shoulder Posture (R) Forward,(R) Elevated Arm Posture (L) Internally Rotated,(R) Internally Rotated Pelvis Posture Anteriorly Tilted,(L) PSIS Posterior Weight Distribution Weight Shifted Anterior Comments Posture Comments Sacrum L rotated. Palpation Assessment Location R Piriformis Palpation Location R Piriformis Palpation Findings Soft Tissue Tightness ABdomen Palpation Location Abdomen for Diastasis Rectus ( DR) Palpation Details 3 above umbilcus open 1 finger width, shallow. DR closes with head lift. Abdominal doming is seen with leg lifting. PT-OP-K Range of Motion Start: 06/10/23 18:37 Freq: Status: Active Protocol: Document 06/16/23 07:33 LRN (Rec: 06/16/23 12:32 LRN [id number]) Lumbar Spine Range of Motion Lumbar Spine Active Degrees Testing Position Standing Flexion 110 Extension 3 Rotation Left 25 Rotation Right 10 Lateral Flexion Left 20 Lateral Flexion Right 10 Hip Goniometric Range of Motion Hip Right Passive Testing Position Supine Internal Rotation 15 External Rotation 75 Left Passive Testing Position Supine Internal Rotation 20 External Rotation 70 PT-OP-M Strength Start: 06/10/23 18:37 Freq: Status: Active Protocol: Document 06/16/23 07:33 LRN (Rec: 06/16/23 12:32 LRN [id number]) Trunk Strength Trunk Manual Muscle Testing Core Stabilization Pt has doming of abdomen and shows weakness with rotation with MMT of LE's Hip Strength Hip Manual Muscle Testing Right Flexion (L2) 4+ Good+ Adduction 4+ Good+ Left Extension (S1) 3 Fair Abduction 4 Good External Rotation 3+ Fair+ PT-OP-Q Treatments Start: 06/10/23 18:37 Freq: Status: Active Protocol: Document 06/16/23 07:33 LRN (Rec: 06/16/23 12:32 LRN [id number]) Therapeutic Exercises Supine Exercises Piriformis stretch Supine Exercise Name Briefly shown KTC w/ankle over knee & knee to opp shoulder. Side right Reps/Minutes 2' Comments Pt shown only R side due to lack of time. Self-Care/Home Management Treatment Education Other Education Discussed results of evaluation, attendance compliance, goals, and plan of care (POC). Pt agreeable to attendance compliance, goals and POC. Activities Self-Care/Home Management Activities Issued & reviewed HEP: Eneida ex's and discussed exercise of Quick Flicks, Long Holds. I/S pt in ex's: Piriformis stretch (knee to opp shoulder or KTC w/ankle over knee) PT-OP-T Assessment and Plan Start: 06/10/23 18:37 Freq: Status: Active Protocol: Document 06/16/23 07:33 LRN (Rec: 06/16/23 12:32 LRN [id number]) Physical Therapy Assessment Rehab Potential Rehabilitation Potential Excellent Evaluation Complexity Number of Personal Factors/Comorbidities 1-2 Number of Body Systems Impaired 4 or More Clinical Presentation at Evaluation Evolving Impairments Impairments Activity Tolerance,Pain, Posture,ROM,Soft Tissue Mobility,Strength,Transfers Goals Four Impairment R lower sacral pain Impairment Standing Trunk AROM (in deg's) : Rot 10 R, 25 L; SB 10 R, 20 L. Short Term Goal (STG) Improve trunk mobility symmetry. Stone Grader Goal (LTG) Eliminate R lower sacral pain onset during daily activities and management of pain with a mobility/stabilization program . LTG Duration 12 wks-09/09/23 Three Impairment Pelvic pain with downhill or fast running if not first urinating. Short Term Goal (STG) Pt will be educated in appropriate fluid management prior to running. STG Duration 6 wks-07/29/23 Care Home Goal (LTG) Pt will be able to eliminate leakage with downhill or fast running with modification of fluid managment before running . LTG Duration 12 wks-09/09/23 Two Impairment Stress urinary incontinence with lifting. Impairment Urinary incontinence when bladder full with cough, sneeze, laugh. Short Term Goal (STG) Pt will be educated in Kegels and aggrevator PF strengthening exercises. 06/16/23: Pt educated in quick and long hold Kegel contractions. STG Duration 6 wks-07/29/23 Stone Grader Goal (LTG) Improve PF strength to eliminate stress urinary incontinence with lifting. LTG Duration 12 wks-09/09/23 One Impairment Pt lacks appropriate self care HEP Short Term Goal (STG) Pt will be educated in proper standing/sitting posture. STG Duration 6 wks-07/29/23 Stone Grader Goal (LTG) Pt will be educated in PF strengthening, and R hip/ pelvic & core stabilization and flexibility exercises. LTG Duration 12 wks-09/09/23 Assessment Summary Assessment Pt is a 42 yo female who presents with stress urinary incontinence due to PF & core weakness (doming noted) and asymmetry of hip mobility and postural/positional changes of the pelvic region. There is tightness of her R Piriformis ms, probably resulting in strain of her L piriformis. The pt will benefit from skilled physical therapy for PF/core/hip strengthening and ROM (core/hips) ex's, postural (tight pecs) training/ strengthening, intra-core pressure management, STM to pelvis, LB, hips and pt education in core pressure management, monitoring for abdominal doming, postural and running training. Physical Therapy Plan Frequency and Duration Frequency of Treatment 1x/Week Duration of treatment (weeks) 12 Plan of Care Start Date 06/16/23 Plan of Care End Date 09/09/23 Therapeutic Interventions Therapeutic Interventions Coordination Training,Gait Training,Home Exercise Program ,Joint Mobilizations,Manual Therapy,Neuromuscular Re- education,Self-Care/Home Management,Soft Tissue Mobilization,Taping, Therapeutic Activities, Therapeutic Exercises Modalities Biofeedback,Cold Pack/Ice Massage,Electric Stimulation Next Visit Focus/Plan Next Note Type Treatment Note Next Visit Plan Next: Issue bladder diary for assessment of fluid management. Vemg assessment for PF strength and endurance, f/b PF strengthening. Subsequent visit: Sacral Balancing. Pt education: Aggrevator Kegels, and Kegels in isolation of substitute ms, core pressure management, proper posture. Strengthening: Core to prevent abdominal doming, hips : R (flex, AD), L (Ext, AB, ER) Stretches: Hip: R piriformis R >L; Core R rot & SB. Core ( rot, SB, abdominal ext). R shoulder pecs and scapular retraction to normalize UE resting postion.
--- NOTE | 2023-06-16 17:23 | PT.OPPOC ---
Physical, Occupational & Speech Therapy At [facility] Current Diagnoses Stiffness of unspecified hip, not elsewhere classified (06/16/23) Postural lordosis, site unspecified (06/16/23) Other specified disorders of muscle (06/16/23) Stress incontinence (female) (male) (06/16/23) Pelvic and perineal pain (06/16/23) Visit Care Team Role Provider Type Carisa Laura MD Attending Provider Physician Family Provider Primary Care Provider Referring Provider Specialty: Family Practice Address: [address] [place] [address], [id number] Email: [email or web address] Plan Of Care PT-OP-T Assessment and Plan Start: 06/10/23 18:37 Freq: Status: Active Protocol: Document 06/16/23 07:33 LRN (Rec: 06/16/23 12:32 LRN [id number]) Physical Therapy Assessment Rehab Potential Rehabilitation Potential Excellent Evaluation Complexity Number of Personal Factors/Comorbidities 1-2 Number of Body Systems Impaired 4 or More Clinical Presentation at Evaluation Evolving Impairments Impairments Activity Tolerance,Pain, Posture,ROM,Soft Tissue Mobility,Strength,Transfers Goals Four Impairment R lower sacral pain Impairment Standing Trunk AROM (in deg's) : Rot 10 R, 25 L; SB 10 R, 20 L. Short Term Goal (STG) Improve trunk mobility symmetry. Journeyman Patternmaker Goal (LTG) Eliminate R lower sacral pain onset during daily activities and management of pain with a mobility/stabilization program . LTG Duration 12 wks-09/09/23 Three Impairment Pelvic pain with downhill or fast running if not first urinating. Short Term Goal (STG) Pt will be educated in appropriate fluid management prior to running. STG Duration 6 wks-07/29/23 Journeyman Patternmaker Goal (LTG) Pt will be able to eliminate leakage with downhill or fast running with modification of fluid managment before running . LTG Duration 12 wks-09/09/23 Two Impairment Stress urinary incontinence with lifting. Impairment Urinary incontinence when bladder full with cough, sneeze, laugh. Short Term Goal (STG) Pt will be educated in Kegels and aggrevator PF strengthening exercises. 06/16/23: Pt educated in quick and long hold Kegel contractions. STG Duration 6 wks-07/29/23 Correction Goal (LTG) Improve PF strength to eliminate stress urinary incontinence with lifting. LTG Duration 12 wks-09/09/23 One Impairment Pt lacks appropriate self care HEP Short Term Goal (STG) Pt will be educated in proper standing/sitting posture. STG Duration 6 wks-07/29/23 Correction Goal (LTG) Pt will be educated in PF strengthening, and R hip/ pelvic & core stabilization and flexibility exercises. LTG Duration 12 wks-09/09/23 Assessment Summary Assessment Pt is a 42 yo female who presents with stress urinary incontinence due to PF & core weakness (doming noted) and asymmetry of hip mobility and postural/positional changes of the pelvic region. There is tightness of her R Piriformis ms, probably resulting in strain of her L piriformis. The pt will benefit from skilled physical therapy for PF/core/hip strengthening and ROM (core/hips) ex's, postural (tight pecs) training/ strengthening, intra-core pressure management, STM to pelvis, LB, hips and pt education in core pressure management, monitoring for abdominal doming, postural and running training. Physical Therapy Plan Frequency and Duration Frequency of Treatment 1x/Week Duration of treatment (weeks) 12 Plan of Care Start Date 06/16/23 Plan of Care End Date 09/09/23 Therapeutic Interventions Therapeutic Interventions Coordination Training,Gait Training,Home Exercise Program ,Joint Mobilizations,Manual Therapy,Neuromuscular Re- education,Self-Care/Home Management,Soft Tissue Mobilization,Taping, Therapeutic Activities, Therapeutic Exercises Modalities Biofeedback,Cold Pack/Ice Massage,Electric Stimulation Next Visit Focus/Plan Next Note Type Treatment Note Next Visit Plan Next: Issue bladder diary for assessment of fluid management. Vemg assessment for PF strength and endurance, f/b PF strengthening. Subsequent visit: Sacral Balancing. Pt education: Aggrevator Kegels, and Kegels in isolation of substitute ms, core pressure management, proper posture. Strengthening: Core to prevent abdominal doming, hips : R (flex, AD), L (Ext, AB, ER) Stretches: Hip: R piriformis R >L; Core R rot & SB. Core ( rot, SB, abdominal ext). R shoulder pecs and scapular retraction to normalize UE resting postion. Plan of Care Dates Plan of Care Start Date 06/16/23 Plan of Care End Date 09/09/23 Electronically Signed by: Jayla Owusu, PT 06/16/23 [id number] If you are in agreement with this Plan of Care, please return a signed and dated copy. I have reviewed this Plan of Care and certify that the skilled therapy services above are required to meet the patient?s needs. Physician Signature Date Printed Name and Credentials Clinical Instructor Signature Printed Name and Credentials
--- NOTE | 2023-06-30 16:53 | PT.OTN ---
Current Diagnoses Stiffness of unspecified hip, not elsewhere classified (06/30/23) Postural lordosis, site unspecified (06/30/23) Other specified disorders of muscle (06/30/23) Stress incontinence (female) (male) (06/30/23) Pelvic and perineal pain (06/30/23) Physical Therapy Treatment Note PT-OP-A Visit Information Start: 06/10/23 18:37 Freq: Status: Active Protocol: Document 06/30/23 09:05 LRN (Rec: 06/30/23 09:48 LRN [id number]) Out-Patient Physical Therapy Visit Information Visit Information Visit Type Treatment Note Visit Start Time 09:05 Visit Stop Time 09:47 Visit Number 05/08 Evaluation Information Evaluation Date 06/16/23 Precautions Precautions 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 PT-OP-B Current Condition Start: 06/10/23 18:37 Freq: Status: Active Protocol: Document 06/16/23 07:33 LRN (Rec: 06/16/23 12:32 LRN [id number]) Current Condition History of Current Condition Onset Date 2017 Current Complaints Pain in L lower sacrum and a little urinary leakage with heavy lifting. History of Current Condition Pt reports during first she had pain in R side of lower sacrum and also had a litle light urinary incontinence. She currently has a little urinary incontinence if lifting heavy and if she doesn't urinate before running she will leak urine (on runs 2-5 miles). With running she reports sometimes the pelvis hurts running fast or downhill. She reports when bladder is full she leaks with coughing, sneezing and laughing. Prior Treatments and Tests None Developmental History Developmental History 2G, 2P. Both vaginal births ( 2017, 2019). Pt runs 3x/week. 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 Treatment Goals Patient/Caregiver Goals Decreased or eliminate R lower sacral pain. Decrease pelvic pain with downhill running or fast running. Eliminate stress urinary incontinence with lifting. 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 PT-OP-C Subjective Start: 06/10/23 18:37 Freq: Status: Active Protocol: Document 06/30/23 09:05 LRN (Rec: 06/30/23 09:48 LRN [id number]) OP-PT Subjective Patient Comments Patient Comments Not stretching as much as should. Not much change. PT-OP-I Pelvic Floor Start: 06/10/23 18:37 Freq: Status: Active Protocol: Document 06/30/23 09:05 LRN (Rec: 06/30/23 09:48 LRN [id number]) Pelvic Floor Assessment Urine Pelvic Floor Surgery Yes, Hymenectomy Other Urinary Symptoms Urinary leakage if bladder is full. Leakage Size Small Leakage Cause Cough,Exercise,Lifting,Sneeze, Urge Leaks Per Day 2x/month Nocturia 1 Pads Used In 24 Hours 0 Bowel Other Bowel Symptoms On/off constipation and hemorrhoids. Bowel Movement Frequency 1-2 [place] Stool Chart Comments Types 3-4 Prolapse Uterine Prolapse Grade 1 Cystocele Grade 1 Rectocele Grade 1 Prolapse Comments Cystocele is only visible prolapse. PT-OP-J Posture/Palpation/Skin Start: 06/10/23 18:37 Freq: Status: Active Protocol: Document 06/16/23 07:33 LRN (Rec: 06/16/23 12:32 LRN [id number]) Posture Evaluation Position Standing L-Spine Posture Increased Lordosis Shoulder Posture (R) Forward,(R) Elevated Arm Posture (L) Internally Rotated,(R) Internally Rotated Pelvis Posture Anteriorly Tilted,(L) PSIS Posterior Weight Distribution Weight Shifted Anterior Comments Posture Comments Sacrum L rotated. Palpation Assessment Location R Piriformis Palpation Location R Piriformis Palpation Findings Soft Tissue Tightness ABdomen Palpation Location Abdomen for Diastasis Rectus ( DR) Palpation Details 3 above umbilcus open 1 finger width, shallow. DR closes with head lift. Abdominal doming is seen with leg lifting. PT-OP-K Range of Motion Start: 06/10/23 18:37 Freq: Status: Active Protocol: Document 06/16/23 07:33 LRN (Rec: 06/16/23 12:32 LRN [id number]) Lumbar Spine Range of Motion Lumbar Spine Active Degrees Testing Position Standing Flexion 110 Extension 3 Rotation Left 25 Rotation Right 10 Lateral Flexion Left 20 Lateral Flexion Right 10 Hip Goniometric Range of Motion Hip Right Passive Testing Position Supine Internal Rotation 15 External Rotation 75 Left Passive Testing Position Supine Internal Rotation 20 External Rotation 70 PT-OP-M Strength Start: 06/10/23 18:37 Freq: Status: Active Protocol: Document 06/16/23 07:33 LRN (Rec: 06/16/23 12:32 LRN [id number]) Trunk Strength Trunk Manual Muscle Testing Core Stabilization Pt has doming of abdomen and shows weakness with rotation with MMT of LE's Hip Strength Hip Manual Muscle Testing Right Flexion (L2) 4+ Good+ Adduction 4+ Good+ Left Extension (S1) 3 Fair Abduction 4 Good External Rotation 3+ Fair+ PT-OP-Q Treatments Start: 06/10/23 18:37 Freq: Status: Active Protocol: Document 06/30/23 09:05 LRN (Rec: 06/30/23 09:48 LRN [id number]) Therapeutic Exercises Supine Exercises Piriformis stretch Supine Exercise Name Briefly shown KTC w/ankle over knee & knee to opp shoulder. Side right Reps/Minutes 10' Comments Pt shown only R side due to lack of time. Manual Therapy Treatment Soft Tissue Mobilization Sacral Balancing Body Location Sacrum Mobilization Type Sustained Pressure Intensity/Depth Moderate Body Position Prone & Supine Comments Arms bysides. SAcral sulcus: L slightly limited w/inferior glide, R side decreased PA SAcrum: DEcreased shear to R. GABRIELLE Decreased R GABRIELLE & Ischial Tub: Decreased L w/PA glide. Self-Care/Home Management Treatment Education Other Education Discussed and educated pt in specifics for completion of in use of Bladder Diary and I/S in tracking for 1 week. Discussed use of 2 different diaries for tracking of bladder for next 7 days. PT-OP-T Assessment and Plan Start: 06/10/23 18:37 Freq: Status: Active Protocol: Document 06/30/23 09:05 LRN (Rec: 06/30/23 09:48 LRN [id number]) Physical Therapy Assessment Goals Four Impairment R lower sacral pain Impairment Standing Trunk AROM (in deg's) : Rot 10 R, 25 L; SB 10 R, 20 L. Short Term Goal (STG) Improve trunk mobility symmetry. [facility] Goal (LTG) Eliminate R lower sacral pain onset during daily activities and management of pain with a mobility/stabilization program . LTG Duration 12 wks-09/09/23 Three Impairment Pelvic pain with downhill or fast running if not first urinating. Short Term Goal (STG) Pt will be educated in appropriate fluid management prior to running. STG Duration 6 wks-07/29/23 Customer Support Consultant Goal (LTG) Pt will be able to eliminate leakage with downhill or fast running with modification of fluid managment before running . LTG Duration 12 wks-09/09/23 Two Impairment Stress urinary incontinence with lifting. Impairment Urinary incontinence when bladder full with cough, sneeze, laugh. Short Term Goal (STG) Pt will be educated in Kegels and aggrevator PF strengthening exercises. 06/16/23: Pt educated in quick and long hold Kegel contractions. STG Duration 6 wks-07/29/23 Customer Support Consultant Goal (LTG) Improve PF strength to eliminate stress urinary incontinence with lifting. LTG Duration 12 wks-09/09/23 One Impairment Pt lacks appropriate self care HEP Short Term Goal (STG) Pt will be educated in proper standing/sitting posture. STG Duration 6 wks-07/29/23 [facility] Goal (LTG) Pt will be educated in PF strengthening, and R hip/ pelvic & core stabilization and flexibility exercises. LTG Duration 12 wks-09/09/23 Assessment Summary Assessment 42 yo female with EUNICE, asymmetry of hip mobility and postural/positional changes of the pelvic region (doming noted). Good sacral mobilization noted. Will need to review log roll transfer and stress preventing abdminal doming. Physical Therapy Plan Frequency and Duration Frequency of Treatment 1x/Week Duration of treatment (weeks) 12 Plan of Care Start Date 06/16/23 Plan of Care End Date 09/09/23 Next Visit Focus/Plan Next Note Type Treatment Note Next Visit Plan Next: Review bladder diary for assessment of fluid management(for running). Review log roll transfer and stress preventing abdminal doming. PF strengthening. ( when available, Vemg assessment for PF strength and endurance, f/b PF strengthening). Posture education. Subsequent visit: Again Sacral Balancing as needed. Pt education: Aggrevator Kegels, and Kegels in isolation of substitute ms, core pressure management, proper posture. Stretches: Hip: R piriformis R >L; Core R rot & SB, ?ext. R shoulder pecs and scapular retraction to normalize UE resting postion. Strengthening: Core to prevent abdominal doming, hips: R (flex, AD), L (Ext, AB , ER)
--- NOTE | 2023-07-04 16:24 | PT.OTN ---
Current Diagnoses Stiffness of unspecified hip, not elsewhere classified (07/04/23) Postural lordosis, site unspecified (07/04/23) Other specified disorders of muscle (07/04/23) Stress incontinence (female) (male) (07/04/23) Pelvic and perineal pain (07/04/23) Physical Therapy Treatment Note PT-OP-A Visit Information Start: 06/10/23 18:37 Freq: Status: Active Protocol: Document 07/04/23 13:53 LRN (Rec: 07/04/23 14:37 LRN [id number]) Out-Patient Physical Therapy Visit Information Visit Information Visit Type Treatment Note Visit Start Time 13:53 Visit Stop Time 14:35 Visit Number 06/05 Evaluation Information Evaluation Date 06/16/23 Precautions Precautions 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 PT-OP-B Current Condition Start: 06/10/23 18:37 Freq: Status: Active Protocol: Document 06/16/23 07:33 LRN (Rec: 06/16/23 12:32 LRN [id number]) Current Condition History of Current Condition Onset Date 2017 Current Complaints Pain in L lower sacrum and a little urinary leakage with heavy lifting. History of Current Condition Pt reports during first she had pain in R side of lower sacrum and also had a litle light urinary incontinence. She currently has a little urinary incontinence if lifting heavy and if she doesn't urinate before running she will leak urine (on runs 2-5 miles). With running she reports sometimes the pelvis hurts running fast or downhill. She reports when bladder is full she leaks with coughing, sneezing and laughing. Prior Treatments and Tests None Developmental History Developmental History 2G, 2P. Both vaginal births ( 2017, 2019). Pt runs 3x/week. 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 Treatment Goals Patient/Caregiver Goals Decreased or eliminate R lower sacral pain. Decrease pelvic pain with downhill running or fast running. Eliminate stress urinary incontinence with lifting. 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 PT-OP-C Subjective Start: 06/10/23 18:37 Freq: Status: Active Protocol: Document 07/04/23 13:53 LRN (Rec: 07/04/23 14:37 LRN [id number]) OP-PT Subjective Patient Comments Patient Comments Low back is feeling better. LBP 0/10. hasn't been active and has been working nights, so no LBP. Sometimes gets pain with working but not ususally. PT-OP-I Pelvic Floor Start: 06/10/23 18:37 Freq: Status: Active Protocol: Document 06/30/23 09:05 LRN (Rec: 06/30/23 09:48 LRN [id number]) Pelvic Floor Assessment Urine Pelvic Floor Surgery Yes, Hymenectomy Other Urinary Symptoms Urinary leakage if bladder is full. Leakage Size Small Leakage Cause Cough,Exercise,Lifting,Sneeze, Urge Leaks Per Day 2x/month Nocturia 1 Pads Used In 24 Hours 0 Bowel Other Bowel Symptoms On/off constipation and hemorrhoids. Bowel Movement Frequency 1-2 [place] Stool Chart Comments Types 3-4 Prolapse Uterine Prolapse Grade 1 Cystocele Grade 1 Rectocele Grade 1 Prolapse Comments Cystocele is only visible prolapse. PT-OP-J Posture/Palpation/Skin Start: 06/10/23 18:37 Freq: Status: Active Protocol: Document 06/16/23 07:33 LRN (Rec: 06/16/23 12:32 LRN [id number]) Posture Evaluation Position Standing L-Spine Posture Increased Lordosis Shoulder Posture (R) Forward,(R) Elevated Arm Posture (L) Internally Rotated,(R) Internally Rotated Pelvis Posture Anteriorly Tilted,(L) PSIS Posterior Weight Distribution Weight Shifted Anterior Comments Posture Comments Sacrum L rotated. Palpation Assessment Location R Piriformis Palpation Location R Piriformis Palpation Findings Soft Tissue Tightness ABdomen Palpation Location Abdomen for Diastasis Rectus ( DR) Palpation Details 3 above umbilcus open 1 finger width, shallow. DR closes with head lift. Abdominal doming is seen with leg lifting. PT-OP-K Range of Motion Start: 06/10/23 18:37 Freq: Status: Active Protocol: Document 06/16/23 07:33 LRN (Rec: 06/16/23 12:32 LRN [id number]) Lumbar Spine Range of Motion Lumbar Spine Active Degrees Testing Position Standing Flexion 110 Extension 3 Rotation Left 25 Rotation Right 10 Lateral Flexion Left 20 Lateral Flexion Right 10 Hip Goniometric Range of Motion Hip Right Passive Testing Position Supine Internal Rotation 15 External Rotation 75 Left Passive Testing Position Supine Internal Rotation 20 External Rotation 70 PT-OP-M Strength Start: 06/10/23 18:37 Freq: Status: Active Protocol: Document 06/16/23 07:33 LRN (Rec: 06/16/23 12:32 LRN [id number]) Trunk Strength Trunk Manual Muscle Testing Core Stabilization Pt has doming of abdomen and shows weakness with rotation with MMT of LE's Hip Strength Hip Manual Muscle Testing Right Flexion (L2) 4+ Good+ Adduction 4+ Good+ Left Extension (S1) 3 Fair Abduction 4 Good External Rotation 3+ Fair+ PT-OP-Q Treatments Start: 06/10/23 18:37 Freq: Status: Active Protocol: Document 07/04/23 13:53 LRN (Rec: 07/04/23 14:37 LRN [id number]) Therapeutic Exercises Other Exercises Wag the Tail Side bilateral Reps/Minutes 2-3 SH x 10 Cat/Cow Other Exercise Name Cat/neutral cow Reps/Minutes 5 SH x 10 each Comments Cued to not go so deep into trunk ext and flex in LB. Child's Pose Other Exercise Name Child's Pose Reps/Minutes 3' Comments Cued to arch LB for flex stretch Manual Therapy Treatment Soft Tissue Mobilization Sacral Balancing Body Location Sacrum Mobilization Type Sustained Pressure Intensity/Depth Moderate Body Position Prone & Supine Comments Sacral sulcus: L slightly limited w/inferior glide, L side decreased PA Sacrum: Decreased shear to R. GABRIELLE Decreased GABRIELLE & Ischial Tub w/PA glide. 6 pt balancing Pub balancing. 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 Pt to drink more fluids, eat more fiber. PT-OP-T Assessment and Plan Start: 06/10/23 18:37 Freq: Status: Active Protocol: Document 07/04/23 13:53 LRN (Rec: 07/04/23 14:37 LRN [id number]) Physical Therapy Assessment Goals Four Impairment R lower sacral pain Impairment Standing Trunk AROM (in deg's) : Rot 10 R, 25 L; SB 10 R, 20 L. Short Term Goal (STG) Improve trunk mobility symmetry. Care Home Goal (LTG) Eliminate R lower sacral pain onset during daily activities and management of pain with a mobility/stabilization program . LTG Duration 12 wks-09/09/23 Three Impairment Pelvic pain with downhill or fast running if not first urinating. Short Term Goal (STG) Pt will be educated in appropriate fluid management prior to running. 07/04/23: Pt educated in proper fluid management for her weight. STG Duration 6 wks-07/29/23 Electrotype Servicer Goal (LTG) Pt will be able to eliminate leakage with downhill or fast running with modification of fluid managment before running . LTG Duration 12 wks-09/09/23 Two Impairment Stress urinary incontinence with lifting. Impairment Urinary incontinence when bladder full with cough, sneeze, laugh. Short Term Goal (STG) Pt will be educated in Kegels and aggrevator PF strengthening exercises. 06/16/23: Pt educated in quick and long hold Kegel contractions. STG Duration 6 wks-07/29/23 Care Home Goal (LTG) Improve PF strength to eliminate stress urinary incontinence with lifting. LTG Duration 12 wks-09/09/23 One Impairment Pt lacks appropriate self care HEP Short Term Goal (STG) Pt will be educated in proper standing/sitting posture. STG Duration 6 wks-07/29/23 Electrotype Servicer Goal (LTG) Pt will be educated in PF strengthening, and R hip/ pelvic & core stabilization and flexibility exercises. 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 Today able to complete sacral balancing on the table. Didn't have time to review log roll transfer and stress preventing abdminal doming. Physical Therapy Plan Frequency and Duration Frequency of Treatment 1x/Week Duration of treatment (weeks) 12 Plan of Care Start Date 06/16/23 Plan of Care End Date 09/09/23 Next Visit Focus/Plan Next Note Type Treatment Note Next Visit Plan Next: Assess response to Sacral Balancing (LBP, posture ). Review log roll transfer and stress preventing abdminal doming. Pt education in standing/sitting posture & aggrevator PF strengthening, and voiding times. Review running days bladder diary for assessment of fluid management for running. Review log roll transfer and stress preventing abdominal doming. Manual: [place] release, abdominal mobs Gait/ run assessment and/or PF strengthening. (when available, Vemg assessment for PF strength and endurance, f/ b PF strengthening). Pt education: Aggrevator Kegels, and Kegels in isolation of substitute ms, core pressure management, proper posture. Manual: Lower abdominal techniques, , Bladder, Cervix, EAS, core activation. Stretches: Hip: R piriformis R >L; Core R rot & SB, ?ext. R shoulder pecs and scapular retraction to normalize UE resting postion. Strengthening: Core to prevent abdominal doming, hips: R (flex, AD), L (Ext, AB , ER) Gait/run training periodically with corrections in posture and hip/trunk mobility. Sacral Balancing as needed.
--- NOTE | 2023-07-11 16:04 | PT.OTN ---
Current Diagnoses Stiffness of unspecified hip, not elsewhere classified (07/11/23) Postural lordosis, site unspecified (07/11/23) Other specified disorders of muscle (07/11/23) Stress incontinence (female) (male) (07/11/23) Pelvic and perineal pain (07/11/23) Physical Therapy Treatment Note PT-OP-A Visit Information Start: 06/10/23 18:37 Freq: Status: Active Protocol: Document 07/11/23 13:00 LRN (Rec: 07/11/23 13:46 LRN [id number]) Out-Patient Physical Therapy Visit Information Visit Information Visit Type Treatment Note Visit Start Time 13:00 Visit Stop Time 13:40 Visit Number 07/06 Evaluation Information Evaluation Date 06/16/23 Precautions Precautions 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 PT-OP-B Current Condition Start: 06/10/23 18:37 Freq: Status: Active Protocol: Document 06/16/23 07:33 LRN (Rec: 06/16/23 12:32 LRN [id number]) Current Condition History of Current Condition Onset Date 2017 Current Complaints Pain in L lower sacrum and a little urinary leakage with heavy lifting. History of Current Condition Pt reports during first she had pain in R side of lower sacrum and also had a litle light urinary incontinence. She currently has a little urinary incontinence if lifting heavy and if she doesn't urinate before running she will leak urine (on runs 2-5 miles). With running she reports sometimes the pelvis hurts running fast or downhill. She reports when bladder is full she leaks with coughing, sneezing and laughing. Prior Treatments and Tests None Developmental History Developmental History 2G, 2P. Both vaginal births ( 2017, 2019). Pt runs 3x/week. 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 Treatment Goals Patient/Caregiver Goals Decreased or eliminate R lower sacral pain. Decrease pelvic pain with downhill running or fast running. Eliminate stress urinary incontinence with lifting. 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 PT-OP-C Subjective Start: 06/10/23 18:37 Freq: Status: Active Protocol: Document 07/11/23 13:00 LRN (Rec: 07/11/23 13:46 LRN [id number]) OP-PT Subjective Patient Comments Patient Comments Not much difference in fluid intake during days running. Back has been pretty good. Went running today and felt discomfort in the R Sacral border. Moving around on the floor and getting out of bed hasn't had much issues. PT-OP-I Pelvic Floor Start: 06/10/23 18:37 Freq: Status: Active Protocol: Document 06/30/23 09:05 LRN (Rec: 06/30/23 09:48 LRN [id number]) Pelvic Floor Assessment Urine Pelvic Floor Surgery Yes, Hymenectomy Other Urinary Symptoms Urinary leakage if bladder is full. Leakage Size Small Leakage Cause Cough,Exercise,Lifting,Sneeze, Urge Leaks Per Day 2x/month Nocturia 1 Pads Used In 24 Hours 0 Bowel Other Bowel Symptoms On/off constipation and hemorrhoids. Bowel Movement Frequency 1-2 Rhea Stool Chart Comments Types 3-4 Prolapse Uterine Prolapse Grade 1 Cystocele Grade 1 Rectocele Grade 1 Prolapse Comments Cystocele is only visible prolapse. PT-OP-J Posture/Palpation/Skin Start: 06/10/23 18:37 Freq: Status: Active Protocol: Document 06/16/23 07:33 LRN (Rec: 06/16/23 12:32 LRN [id number]) Posture Evaluation Position Standing L-Spine Posture Increased Lordosis Shoulder Posture (R) Forward,(R) Elevated Arm Posture (L) Internally Rotated,(R) Internally Rotated Pelvis Posture Anteriorly Tilted,(L) PSIS Posterior Weight Distribution Weight Shifted Anterior Comments Posture Comments Sacrum L rotated. Palpation Assessment Location R Piriformis Palpation Location R Piriformis Palpation Findings Soft Tissue Tightness ABdomen Palpation Location Abdomen for Diastasis Rectus ( DR) Palpation Details 3 above umbilcus open 1 finger width, shallow. DR closes with head lift. Abdominal doming is seen with leg lifting. PT-OP-K Range of Motion Start: 06/10/23 18:37 Freq: Status: Active Protocol: Document 06/16/23 07:33 LRN (Rec: 06/16/23 12:32 LRN [id number]) Lumbar Spine Range of Motion Lumbar Spine Active Degrees Testing Position Standing Flexion 110 Extension 3 Rotation Left 25 Rotation Right 10 Lateral Flexion Left 20 Lateral Flexion Right 10 Hip Goniometric Range of Motion Hip Right Passive Testing Position Supine Internal Rotation 15 External Rotation 75 Left Passive Testing Position Supine Internal Rotation 20 External Rotation 70 PT-OP-M Strength Start: 06/10/23 18:37 Freq: Status: Active Protocol: Document 06/16/23 07:33 LRN (Rec: 06/16/23 12:32 LRN [id number]) Trunk Strength Trunk Manual Muscle Testing Core Stabilization Pt has doming of abdomen and shows weakness with rotation with MMT of LE's Hip Strength Hip Manual Muscle Testing Right Flexion (L2) 4+ Good+ Adduction 4+ Good+ Left Extension (S1) 3 Fair Abduction 4 Good External Rotation 3+ Fair+ PT-OP-Q Treatments Start: 06/10/23 18:37 Freq: Status: Active Protocol: Document 07/11/23 13:00 LRN (Rec: 07/11/23 13:46 LRN [id number]) Therapeutic Exercises Supine Exercises Piriformis stretch Side bilateral Reps/Minutes 2' Sitting Exercises L Piriformis stretch Sitting Exercise Name L leg on plinth in ER. Side left Reps/Minutes 1' Comments Mild stretch felt Other Exercises Piriformis: [place] Pose Other Exercise Name Piriformis stretch - Deep stretch felt Side left Reps/Minutes 2' Comments Cued to PPT Wag the Tail Side bilateral Reps/Minutes 2-3 SH x 10 Cat/Cow Other Exercise Name Cat/neutral cow Reps/Minutes 5 SH x 10 each Comments Cued to not go so deep into trunk ext and flex in LB. Child's Pose Other Exercise Name Child's Pose Reps/Minutes 3' Manual Therapy Treatment Soft Tissue Mobilization Sacral Balancing Body Location Sacrum Mobilization Type Sustained Pressure Intensity/Depth Moderate Body Position Prone & Supine Comments Sacral sulcus: L slightly limited w/inferior glide, L side decreased PA Sacrum: Decreased shear to R. L GABRIELLE Decreased PA, L Ischial Tub slight w/PA glide. 6 pt balancing Hip IR/ER supine Self-Care/Home Management Treatment Education Patient Education Posture Other Education Discussed & educated pt in standing/sitting posture Activities Self-Care/Home Management Activities Issued handout for proper standing and sitting posture. PT-OP-T Assessment and Plan Start: 06/10/23 18:37 Freq: Status: Active Protocol: Document 07/11/23 13:00 LRN (Rec: 07/11/23 13:46 LRN [id number]) Physical Therapy Assessment Goals Four Impairment R lower sacral pain Impairment Standing Trunk AROM (in deg's) : Rot 10 R, 25 L; SB 10 R, 20 L. Short Term Goal (STG) Improve trunk mobility symmetry. Usp Goal (LTG) Eliminate R lower sacral pain onset during daily activities and management of pain with a mobility/stabilization program . LTG Duration 12 wks-09/09/23 Three Impairment Pelvic pain with downhill or fast running if not first urinating. Short Term Goal (STG) Pt will be educated in appropriate fluid management prior to running. 07/04/23: Pt educated in proper fluid management for her weight. STG Duration 6 wks-07/29/23 Usp Goal (LTG) Pt will be able to eliminate leakage with downhill or fast running with modification of fluid managment before running . LTG Duration 12 wks-09/09/23 Two Impairment Stress urinary incontinence with lifting. Impairment Urinary incontinence when bladder full with cough, sneeze, laugh. Short Term Goal (STG) Pt will be educated in Kegels and aggrevator PF strengthening exercises. 06/16/23: Pt educated in quick and long hold Kegel contractions. STG Duration 6 wks-07/29/23 Usp Goal (LTG) Improve PF strength to eliminate stress urinary incontinence with lifting. LTG Duration 12 wks-09/09/23 One Impairment Pt lacks appropriate self care HEP Short Term Goal (STG) Pt will be educated in proper standing/sitting posture. 07/11/23: Discussed & educated pt in standing/ sitting posture STG Duration 6 wks-07/29/23 (07/11/23: MET GOAL) Usp Goal (LTG) Pt will be educated in PF strengthening, and R hip/ pelvic & core stabilization and flexibility exercises. 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 Today R lateral border of sacrum discomfort after running, and tightness in L lumbar paraspinals and gluteal ms after Sacral balancing (w/o pub balance), L hip IR restricted in mobility (in sup neutral). Physical Therapy Plan Frequency and Duration Frequency of Treatment 1x/Week Duration of treatment (weeks) 12 Plan of Care Start Date 06/16/23 Plan of Care End Date 09/09/23 Next Visit Focus/Plan Next Note Type Treatment Note Next Visit Plan Next: Assess (LBP, posture change) response to 2nd Sacral Balancing. Review log roll transfer and stress preventing abdminal doming. Pt education in aggrevator PF strengthening, and voiding times. Vemg assessment for PF strength and endurance, f/b PF strengthening. Review running days bladder diary for assessment of fluid management for running. Manual: Ilioposas release, abdominal mobs Gait/run assessment and/or PF strengthening. Pt education: Aggrevator Kegels, and Kegels in isolation of substitute ms, core pressure management, proper posture. Manual: Lower abdominal techniques, , Bladder, Cervix, EAS, core activation. Stretches: Hip: R piriformis R >L; Core R rot & SB, ?ext. R shoulder pecs and scapular retraction to normalize UE resting postion. Strengthening: Core to prevent abdominal doming, hips: R (flex, AD), L (Ext, AB , ER) Gait/run training periodically with corrections in posture and hip/trunk mobility. Sacral Balancing as needed.
--- NOTE | 2023-07-18 15:37 | PT.OTN ---
Current Diagnoses Stiffness of unspecified hip, not elsewhere classified (07/18/23) Postural lordosis, site unspecified (07/18/23) Other specified disorders of muscle (07/18/23) Stress incontinence (female) (male) (07/18/23) Pelvic and perineal pain (07/18/23) Physical Therapy Treatment Note PT-OP-A Visit Information Start: 06/10/23 18:37 Freq: Status: Active Protocol: Document 07/18/23 13:02 LRN (Rec: 07/18/23 13:48 LRN [id number]) Out-Patient Physical Therapy Visit Information Visit Information Visit Type Treatment Note Visit Start Time 13:02 Visit Stop Time 13:41 Visit Number 08/05 Evaluation Information Evaluation Date 06/16/23 Precautions Precautions 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 PT-OP-B Current Condition Start: 06/10/23 18:37 Freq: Status: Active Protocol: Document 06/16/23 07:33 LRN (Rec: 06/16/23 12:32 LRN [id number]) Current Condition History of Current Condition Onset Date 2017 Current Complaints Pain in L lower sacrum and a little urinary leakage with heavy lifting. History of Current Condition Pt reports during first she had pain in R side of lower sacrum and also had a litle light urinary incontinence. She currently has a little urinary incontinence if lifting heavy and if she doesn't urinate before running she will leak urine (on runs 2-5 miles). With running she reports sometimes the pelvis hurts running fast or downhill. She reports when bladder is full she leaks with coughing, sneezing and laughing. Prior Treatments and Tests None Developmental History Developmental History 2G, 2P. Both vaginal births ( 2017, 2019). Pt runs 3x/week. 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 Treatment Goals Patient/Caregiver Goals Decreased or eliminate R lower sacral pain. Decrease pelvic pain with downhill running or fast running. Eliminate stress urinary incontinence with lifting. 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 PT-OP-C Subjective Start: 06/10/23 18:37 Freq: Status: Active Protocol: Document 07/18/23 13:02 LRN (Rec: 07/18/23 13:48 LRN [id number]) OP-PT Subjective Patient Comments Patient Comments Feels with running she feels the R sacral pain a little less intense. No LBP. No catching with rolling in bed and while sleeping in the back of a trunk. Ran today and 2 days ago. PT-OP-I Pelvic Floor Start: 06/10/23 18:37 Freq: Status: Active Protocol: Document 06/30/23 09:05 LRN (Rec: 06/30/23 09:48 LRN [id number]) Pelvic Floor Assessment Urine Pelvic Floor Surgery Yes, Hymenectomy Other Urinary Symptoms Urinary leakage if bladder is full. Leakage Size Small Leakage Cause Cough,Exercise,Lifting,Sneeze, Urge Leaks Per Day 2x/month Nocturia 1 Pads Used In 24 Hours 0 Bowel Other Bowel Symptoms On/off constipation and hemorrhoids. Bowel Movement Frequency 1-2 Iron Stool Chart Comments Types 3-4 Prolapse Uterine Prolapse Grade 1 Cystocele Grade 1 Rectocele Grade 1 Prolapse Comments Cystocele is only visible prolapse. PT-OP-J Posture/Palpation/Skin Start: 06/10/23 18:37 Freq: Status: Active Protocol: Document 06/16/23 07:33 LRN (Rec: 06/16/23 12:32 LRN [id number]) Posture Evaluation Position Standing L-Spine Posture Increased Lordosis Shoulder Posture (R) Forward,(R) Elevated Arm Posture (L) Internally Rotated,(R) Internally Rotated Pelvis Posture Anteriorly Tilted,(L) PSIS Posterior Weight Distribution Weight Shifted Anterior Comments Posture Comments Sacrum L rotated. Palpation Assessment Location R Piriformis Palpation Location R Piriformis Palpation Findings Soft Tissue Tightness ABdomen Palpation Location Abdomen for Diastasis Rectus ( DR) Palpation Details 3 above umbilcus open 1 finger width, shallow. DR closes with head lift. Abdominal doming is seen with leg lifting. PT-OP-K Range of Motion Start: 06/10/23 18:37 Freq: Status: Active Protocol: Document 06/16/23 07:33 LRN (Rec: 06/16/23 12:32 LRN [id number]) Lumbar Spine Range of Motion Lumbar Spine Active Degrees Testing Position Standing Flexion 110 Extension 3 Rotation Left 25 Rotation Right 10 Lateral Flexion Left 20 Lateral Flexion Right 10 Hip Goniometric Range of Motion Hip Right Passive Testing Position Supine Internal Rotation 15 External Rotation 75 Left Passive Testing Position Supine Internal Rotation 20 External Rotation 70 PT-OP-M Strength Start: 06/10/23 18:37 Freq: Status: Active Protocol: Document 06/16/23 07:33 LRN (Rec: 06/16/23 12:32 LRN [id number]) Trunk Strength Trunk Manual Muscle Testing Core Stabilization Pt has doming of abdomen and shows weakness with rotation with MMT of LE's Hip Strength Hip Manual Muscle Testing Right Flexion (L2) 4+ Good+ Adduction 4+ Good+ Left Extension (S1) 3 Fair Abduction 4 Good External Rotation 3+ Fair+ PT-OP-Q Treatments Start: 06/10/23 18:37 Freq: Status: Active Protocol: Document 07/18/23 13:02 LRN (Rec: 07/18/23 13:48 LRN [id number]) Cardio Equipment Treadmill Duration (Minutes) 7 Speed 4.7 Incline 0 Other Cue TA tightening, breathing, posture Therapeutic Exercises Supine Exercises hip/LE neural stretch Supine Exercise Name PSLR (Piriformis emphasis) w/ neural load of Hip horiz AD w/ IR Side bilateral Reps/Minutes 3' Comments Extra time to determine max jocelyn stretch Piriformis stretch Side bilateral Reps/Minutes 2' Sidelying Exercises TFL leg lifts Side bilateral Reps/Minutes 15x each Clamshell Side bilateral Reps/Minutes 15x each Comments Cued for TA tight Sitting Exercises L Piriformis stretch Sitting Exercise Name [place]: L leg on plinth in ER. Side left Reps/Minutes 1' Comments Mild stretch felt Standing Exercises TFL stretch Side bilateral Reps/Minutes 3' Other Exercises Piriformis: [place] Pose Other Exercise Name Piriformis stretch - Deep stretch felt Side left Reps/Minutes 2' Comments Cued to PPT Wag the Tail Side bilateral Reps/Minutes 2-3 SH x 10 Cat/Cow Other Exercise Name Cat/neutral cow Reps/Minutes 5 SH x 10 each Comments Cued to not go so deep into trunk ext and flex in LB. Child's Pose Other Exercise Name Child's Pose Reps/Minutes 1' Therapeutic Activity Therapeutic Activity Postural training Name Posture training against wall and away from wall. Reps/Minutes 3' Comments Pt ribs flaired, excessive trunk ext, fair TA tightening, very tight aristides Iliopsoas (L>R ). Transfer training Name sit<>supine Reps/Minutes 4' x 2 Comments Throughout treatment, pt practiced transfers. Self-Care/Home Management Treatment Activities Self-Care/Home Management Activities Pt I/S to add to HEP: Femoral n glides, Clamshell, TFL strengthening, posture mgmt and transfers w/TA tight. PT-OP-T Assessment and Plan Start: 06/10/23 18:37 Freq: Status: Active Protocol: Document 07/18/23 13:02 LRN (Rec: 07/18/23 13:48 LRN [id number]) Physical Therapy Assessment Goals Four Impairment R lower sacral pain Impairment Standing Trunk AROM (in deg's) : Rot 10 R, 25 L; SB 10 R, 20 L. Short Term Goal (STG) Improve trunk mobility symmetry. Penitentiary Goal (LTG) Eliminate R lower sacral pain onset during daily activities and management of pain with a mobility/stabilization program . 07/18/23: R sacral pain with akward movements and with strenous activity (running). No pain with kids at home and at work. LTG Duration 12 wks-09/09/23 progressing 07/18/23 Three Impairment Pelvic pain with downhill or fast running if not first urinating. Short Term Goal (STG) Pt will be educated in appropriate fluid management prior to running. 07/04/23: Pt educated in proper fluid management for her weight. 06/18/23: R sacral pain downhill, & level. STG Duration 6 wks-07/29/23 (07/04/23: MET GOAL) Penitentiary Goal (LTG) Pt will be able to eliminate leakage with downhill or fast running with modification of fluid managment before running . 07/18/23: No urinary leakage with running if voids before running. LTG Duration 12 wks-09/09/23 (07/18/23: MET GOAL). Two Impairment Stress urinary incontinence with lifting. Impairment Urinary incontinence when bladder full with cough, sneeze, laugh. Short Term Goal (STG) Pt will be educated in Kegels and aggrevator PF strengthening exercises. 06/16/23: Pt educated in quick and long hold Kegel contractions. STG Duration 6 wks-07/29/23 Penitentiary Goal (LTG) Improve PF strength to eliminate stress urinary incontinence with lifting. 07/18/23: Leakage if bladder is full. LTG Duration 12 wks-09/09/23 One Impairment Pt lacks appropriate self care HEP Short Term Goal (STG) Pt will be educated in proper standing/sitting posture. 07/11/23: Discussed & educated pt in standing/ sitting posture. 07/18/23: Standing postural training against wall. STG Duration 6 wks-07/29/23 (07/11/23: MET GOAL) Md Physician Dermatologist Goal (LTG) Pt will be educated in PF strengthening, and R hip/ pelvic & core stabilization and flexibility exercises. 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 Today, after sacral balancing last session, LBP resolved, only R sacral border discomfort persists. She shows continued postural changes (ribs flaired, excessive trunk ext, fair TA tightening, very tight aristides Iliopsoas (L>R)), weakness of TFL & TA, & decr'd SLR w/ primary Piriformis tightness. Running shows: weakness hip AB's, R foot ER's on swing thru R>L, decr'd pelvic rot & hip ext R, greater L trunk rot , and R arm swing. Physical Therapy Plan Frequency and Duration Frequency of Treatment 1x/Week Duration of treatment (weeks) 12 Plan of Care Start Date 06/16/23 Plan of Care End Date 09/09/23 Next Visit Focus/Plan Next Note Type Treatment Note Next Visit Plan Next: Assess response to postural training, Review log roll transfer and stress preventing abdminal doming ( educate in core pressure management). Recheck trunk mobility for symmetry after stretching. Pt education in aggrevator PF strengthening, voiding times & Vemg assessment for PF strength and endurance, f/b PF strengthening. Review bladder diary on running days for assessment of fluid management for running. Manual: Ilioposas release, abdominal mobs Gait/run assessment and/or PF strengthening. Pt education: Aggrevator Kegels, and Kegels in isolation of substitute ms. Manual: Lower abdominal techniques, , Bladder, Cervix, EAS, core activation. Stretches: Hip: R piriformis R >L; Core R rot & SB, ?ext. R shoulder pecs and scapular retraction to normalize UE resting postion. Strengthening: Core to prevent abdominal doming, and reduce ribs protrusion, & hips : R (flex, AD), L (Ext, AB, ER ) GAIT/RUN training periodically with corrections in posture and hip/trunk mobility ( weakness hip AB's, R foot ER's on swing thru R>L, decr'd pelvic rot & hip ext R, greater L trunk rot, and R arm swing). Sacral Balancing as needed.
--- NOTE | 2023-07-29 17:02 | PT.OTN ---
Current Diagnoses Stiffness of unspecified hip, not elsewhere classified (07/29/23) Postural lordosis, site unspecified (07/29/23) Other specified disorders of muscle (07/29/23) Stress incontinence (female) (male) (07/29/23) Pelvic and perineal pain (07/29/23) Physical Therapy Treatment Note PT-OP-A Visit Information Start: 06/10/23 18:37 Freq: Status: Active Protocol: Document 07/29/23 09:09 LRN (Rec: 07/29/23 09:50 LRN [id number]) Out-Patient Physical Therapy Visit Information Visit Information Visit Type Treatment Note Visit Start Time 09:09 Visit Stop Time 09:50 Visit Number 09/05 Precautions Precautions 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 PT-OP-B Current Condition Start: 06/10/23 18:37 Freq: Status: Active Protocol: Document 06/16/23 07:33 LRN (Rec: 06/16/23 12:32 LRN [id number]) Current Condition History of Current Condition Onset Date 2017 Current Complaints Pain in L lower sacrum and a little urinary leakage with heavy lifting. History of Current Condition Pt reports during first she had pain in R side of lower sacrum and also had a litle light urinary incontinence. She currently has a little urinary incontinence if lifting heavy and if she doesn't urinate before running she will leak urine (on runs 2-5 miles). With running she reports sometimes the pelvis hurts running fast or downhill. She reports when bladder is full she leaks with coughing, sneezing and laughing. Prior Treatments and Tests None Developmental History Developmental History 2G, 2P. Both vaginal births ( 2019). Pt runs 3x/week. 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 Treatment Goals Patient/Caregiver Goals Decreased or eliminate R lower sacral pain. Decrease pelvic pain with downhill running or fast running. Eliminate stress urinary incontinence with lifting. 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 PT-OP-C Subjective Start: 06/10/23 18:37 Freq: Status: Active Protocol: Document 07/29/23 09:09 LRN (Rec: 07/29/23 09:50 LRN [id number]) OP-PT Subjective Patient Comments Patient Comments States last run was pretty good, didn't notice R lower sacral area pain. LB has been tight because has been home picking up kids. Normally run 4 miles and walk 2 miles. PT-OP-I Pelvic Floor Start: 06/10/23 18:37 Freq: Status: Active Protocol: Document 06/30/23 09:05 LRN (Rec: 06/30/23 09:48 LRN [id number]) Pelvic Floor Assessment Urine Pelvic Floor Surgery Yes, Hymenectomy Other Urinary Symptoms Urinary leakage if bladder is full. Leakage Size Small Leakage Cause Cough,Exercise,Lifting,Sneeze, Urge Leaks Per Day 2x/month Nocturia 1 Pads Used In 24 Hours 0 Bowel Other Bowel Symptoms On/off constipation and hemorrhoids. Bowel Movement Frequency 1-2 [place] Stool Chart Comments Types 3-4 Prolapse Uterine Prolapse Grade 1 Cystocele Grade 1 Rectocele Grade 1 Prolapse Comments Cystocele is only visible prolapse. PT-OP-J Posture/Palpation/Skin Start: 06/10/23 18:37 Freq: Status: Active Protocol: Document 06/16/23 07:33 LRN (Rec: 06/16/23 12:32 LRN [id number]) Posture Evaluation Position Standing L-Spine Posture Increased Lordosis Shoulder Posture (R) Forward,(R) Elevated Arm Posture (L) Internally Rotated,(R) Internally Rotated Pelvis Posture Anteriorly Tilted,(L) PSIS Posterior Weight Distribution Weight Shifted Anterior Comments Posture Comments Sacrum L rotated. Palpation Assessment Location R Piriformis Palpation Location R Piriformis Palpation Findings Soft Tissue Tightness ABdomen Palpation Location Abdomen for Diastasis Rectus ( DR) Palpation Details 3 above umbilcus open 1 finger width, shallow. DR closes with head lift. Abdominal doming is seen with leg lifting. PT-OP-K Range of Motion Start: 06/10/23 18:37 Freq: Status: Active Protocol: Document 07/29/23 09:09 LRN (Rec: 07/29/23 09:50 LRN [id number]) Hip Goniometric Range of Motion Hip Right Passive Testing Position Supine Internal Rotation 30 External Rotation 60 Left Passive Testing Position Supine Internal Rotation 30 External Rotation 65 PT-OP-M Strength Start: 06/10/23 18:37 Freq: Status: Active Protocol: Document 07/29/23 09:09 LRN (Rec: 07/29/23 16:51 LRN [id number]) Hip Strength Hip Manual Muscle Testing Right Abduction 5 Normal External Rotation 5 Normal Internal Rotation 4+ Good+ Left Abduction 3 Fair External Rotation 4 Good Internal Rotation 4+ Good+ PT-OP-Q Treatments Start: 06/10/23 18:37 Freq: Status: Active Protocol: Document 07/29/23 09:09 LRN (Rec: 07/29/23 09:50 LR [id number]) Cardio Equipment Treadmill Duration (Minutes) 6 Speed 4.7 Incline 0 Other Cue TA tightening, breathing, posture Therapeutic Exercises Supine Exercises hip/LE neural stretch Supine Exercise Name PSLR (Piriformis emphasis) w/ neural load of Hip horiz AD w/ IR Side bilateral Reps/Minutes 3' Comments Extra time to determine max jocelyn stretch Sidelying Exercises Reverse Clam Sidelying Exercise Name Double on Left as done on Right Reps/Minutes 20x L, 10x R Comments Cued for core stability TA tight TFL leg lifts Sidelying Exercise Name Double on Left as done on Right Side bilateral Reps/Minutes 20x L, 10x R Comments Cued for core stability TA tight Clamshell Sidelying Exercise Name Double on Left as done on Right Side bilateral Reps/Minutes 20x L, 10x R Comments Cued for core stability TA tight Sitting Exercises L Piriformis stretch Sitting Exercise Name [place]: L leg on plinth in ER. Side left Reps/Minutes 1' Comments Mild stretch felt Standing Exercises TFL stretch Side bilateral Reps/Minutes 3' Other Exercises Piriformis: [place] Pose Other Exercise Name Piriformis stretch - Deep stretch felt Side left Reps/Minutes 2' Comments Cued to PPT Wag the Tail Side bilateral Reps/Minutes 2-3 SH x 10 Comments Moves better tilt to left, stiff R hip. Cat/Cow Other Exercise Name Cat/neutral cow Reps/Minutes 5 SH x 10 each Comments Cued to not go so deep into trunk ext and flex in LB. Child's Pose Other Exercise Name Child's Pose Reps/Minutes 1' Self-Care/Home Management Treatment Education Other Education Discussed pt to keep TA tight with running due to visible doming, but to breathe to prevent excessive core pressure. Activities Self-Care/Home Management Activities Issued HEP: L>R reps: CLamshell, Reverse clamshell & I/S for hip AB PT-OP-T Assessment and Plan Start: 06/10/23 18:37 Freq: Status: Active Protocol: Document 07/29/23 09:09 LRN (Rec: 07/29/23 09:50 LRN [id number]) Physical Therapy Assessment Goals Four Impairment R lower sacral pain Impairment Standing Trunk AROM (in deg's) : Rot 10 R, 25 L; SB 10 R, 20 L. Short Term Goal (STG) Improve trunk mobility symmetry. 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 07/18/23: R sacral pain with akward movements and with strenous activity (running). No pain with kids at home and at work. LTG Duration 12 wks-09/09/23 progressing 07/18/23 Two Impairment Stress urinary incontinence with lifting. Impairment Urinary incontinence when bladder full with cough, sneeze, laugh. Short Term Goal (STG) Pt will be educated in Kegels and aggrevator PF strengthening exercises. 06/16/23: Pt educated in quick and long hold Kegel contractions. 07/29/23: Pt educated in Aggrevator PF strengthening ex . STG Duration 6 wks-07/29/23 (07/29/23: MET GOAL) [facility] Goal (LTG) Improve PF strength to eliminate stress urinary incontinence with lifting. 07/18/23: Leakage if bladder is full. LTG Duration 12 wks-09/09/23 One Impairment Pt lacks appropriate self care HEP Short Term Goal (STG) Pt will be educated in proper standing/sitting posture. 07/11/23: Discussed & educated pt in standing/ sitting posture. 07/18/23: Standing postural training against wall. STG Duration 6 wks-07/29/23 (07/11/23: MET GOAL) [facility] Goal (LTG) Pt will be educated in PF strengthening, and R hip/ pelvic & core stabilization and flexibility exercises. 07/29/23: HEP: Clamshell, hip AB (double on L) & Reverse Clamshell. Pt to do hip stretches bilaterally. 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 R lower sacral area pain appears resolved with modified Sciatic n stretch ( SLR w/hip AD). With quick walking her R forefoot AB at end of swing thru & strikes heavier on the LLE with hip swing a little more to the left (weak hip AB). Running, her R foot swings out to the right immediately after toe off (weak core); arm swings more with R backward, pelvis is in L rot and L arm held stiff. Wag the tail stiffness is with wag to R. Coccyx involvement? Physical Therapy Plan Frequency and Duration Frequency of Treatment 1x/Week Duration of treatment (weeks) 12 Plan of Care Start Date 06/16/23 Plan of Care End Date 09/09/23 Next Visit Focus/Plan Next Note Type Treatment Note Next Visit Plan Next: Assess response to postural training, Review log roll transfer and stress preventing abdominal doming ( educate in core pressure management). Recheck trunk mobility for symmetry after stretching. ?bladder diary on running days for assessment of fluid management for running. Pt education: aggrevator PF strengthening, voiding times & Vemg assessment for PF strength and endurance, f/b PF strengthening. Manual: Ilioposas release, abdominal mobs Gait/run assessment and/or PF strengthening. Pt education: Aggrevator Kegels, and Kegels in isolation of substitute ms. Manual: Lower abdominal techniques, , Bladder, Cervix, EAS, core activation. Stretches: Hip: R piriformis R >L; Core R rot & SB, ?ext. R shoulder pecs and scapular retraction to normalize UE resting postion. Strengthening: Core to prevent abdominal doming, and reduce ribs protrusion, & hips : R (flex, AD), L (Ext, AB, ER ) GAIT/RUN training periodically with corrections in posture and hip/trunk mobility ( weakness hip AB's, R foot ER's on swing thru R>L, decr'd pelvic rot & hip ext R, greater L trunk rot, and R arm swing). Sacral Balancing as needed.
--- NOTE | 2023-08-02 09:46 | PT.OTN ---
Current Diagnoses Stiffness of unspecified hip, not elsewhere classified (08/02/23) Postural lordosis, site unspecified (08/02/23) Other specified disorders of muscle (08/02/23) Stress incontinence (female) (male) (08/02/23) Pelvic and perineal pain (08/02/23) Physical Therapy Treatment Note PT-OP-A Visit Information Start: 06/10/23 18:37 Freq: Status: Active Protocol: Document 08/02/23 07:33 LRN (Rec: 08/02/23 08:18 LRN [id number]) Out-Patient Physical Therapy Visit Information Visit Information Visit Type Treatment Note Visit Start Time 07:33 Visit Stop Time 08:15 Visit Number 10/05 Evaluation Information Evaluation Date 06/16/23 Precautions Precautions 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 PT-OP-B Current Condition Start: 06/10/23 18:37 Freq: Status: Active Protocol: Document 06/16/23 07:33 LRN (Rec: 06/16/23 12:32 LRN [id number]) Current Condition History of Current Condition Onset Date 2017 Current Complaints Pain in L lower sacrum and a little urinary leakage with heavy lifting. History of Current Condition Pt reports during first she had pain in R side of lower sacrum and also had a litle light urinary incontinence. She currently has a little urinary incontinence if lifting heavy and if she doesn't urinate before running she will leak urine (on runs 2-5 miles). With running she reports sometimes the pelvis hurts running fast or downhill. She reports when bladder is full she leaks with coughing, sneezing and laughing. Prior Treatments and Tests None Developmental History Developmental History 2G, 2P. Both vaginal births ( 2017, 2019). Pt runs 3x/week. 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 Treatment Goals Patient/Caregiver Goals Decreased or eliminate R lower sacral pain. Decrease pelvic pain with downhill running or fast running. Eliminate stress urinary incontinence with lifting. 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 PT-OP-C Subjective Start: 06/10/23 18:37 Freq: Status: Active Protocol: Document 08/02/23 07:33 LRN (Rec: 08/02/23 08:18 LRN [id number]) OP-PT Subjective Patient Comments Patient Comments Little less pain in R sacrum. No urinary leakage, just has to get up frequently because she drinks so much water, but feels her urination time is normal as a 6-8 sec urination. PT-OP-I Pelvic Floor Start: 06/10/23 18:37 Freq: Status: Active Protocol: Document 06/30/23 09:05 LRN (Rec: 06/30/23 09:48 LRN [id number]) Pelvic Floor Assessment Urine Pelvic Floor Surgery Yes, Hymenectomy Other Urinary Symptoms Urinary leakage if bladder is full. Leakage Size Small Leakage Cause Cough,Exercise,Lifting,Sneeze, Urge Leaks Per Day 2x/month Nocturia 1 Pads Used In 24 Hours 0 Bowel Other Bowel Symptoms On/off constipation and hemorrhoids. Bowel Movement Frequency 1-2 [place] Stool Chart Comments Types 3-4 Prolapse Uterine Prolapse Grade 1 Cystocele Grade 1 Rectocele Grade 1 Prolapse Comments Cystocele is only visible prolapse. PT-OP-J Posture/Palpation/Skin Start: 06/10/23 18:37 Freq: Status: Active Protocol: Document 06/16/23 07:33 LRN (Rec: 06/16/23 12:32 LRN [id number]) Posture Evaluation Position Standing L-Spine Posture Increased Lordosis Shoulder Posture (R) Forward,(R) Elevated Arm Posture (L) Internally Rotated,(R) Internally Rotated Pelvis Posture Anteriorly Tilted,(L) PSIS Posterior Weight Distribution Weight Shifted Anterior Comments Posture Comments Sacrum L rotated. Palpation Assessment Location R Piriformis Palpation Location R Piriformis Palpation Findings Soft Tissue Tightness ABdomen Palpation Location Abdomen for Diastasis Rectus ( DR) Palpation Details 3 above umbilcus open 1 finger width, shallow. DR closes with head lift. Abdominal doming is seen with leg lifting. PT-OP-K Range of Motion Start: 06/10/23 18:37 Freq: Status: Active Protocol: Document 08/02/23 07:33 LRN (Rec: 08/02/23 08:18 LRN [id number]) Lumbar Spine Range of Motion Lumbar Spine Active Degrees Testing Position Standing Flexion 110 Extension 3 Rotation Left 25 Rotation Right 10 Lateral Flexion Left 25 Lateral Flexion Right 13 PT-OP-M Strength Start: 06/10/23 18:37 Freq: Status: Active Protocol: Document 07/29/23 09:09 LRN (Rec: 07/29/23 16:51 LRN [id number]) Hip Strength Hip Manual Muscle Testing Right Abduction 5 Normal External Rotation 5 Normal Internal Rotation 4+ Good+ Left Abduction 3 Fair External Rotation 4 Good Internal Rotation 4+ Good+ PT-OP-Q Treatments Start: 06/10/23 18:37 Freq: Status: Active Protocol: Document 08/02/23 07:33 LRN (Rec: 08/02/23 08:18 LRN [id number]) Therapeutic Exercises Supine Exercises TA/heel slide Supine Exercise Name Focus on TA tight, no doming Side right Reps/Minutes 3' Single limb myofascial mvmt Supine Exercise Name TA/Lat pull down single arm Side left Equipment Used Lev1 TB Reps/Minutes 3' Comments Focus on TA tight, no doming hip/LE neural stretch Supine Exercise Name PSLR w/neural load of Hip horiz AD w/IR (Piriformis emphasis) Side bilateral Reps/Minutes 8' Comments Extra time to asst w/stretch & determ position for stretch Sitting Exercises Trunk rot Sitting Exercise Name Trunk rot stretch standing & sitting Side bilateral Reps/Minutes 6' Comments I/S HEP - R rot. AROM taken sitting. Standing Exercises Trunk AROM Standing Exercise Name Stretch: Flex, Ext, Rot, SB. Side bilateral Reps/Minutes 1-2 each Comments I/S HEP - Trunk R rot & SB. AROM taken. TFL stretch Side bilateral Reps/Minutes 3' Other Exercises Piriformis: [place] Pose Other Exercise Name Piriformis stretch - Deep stretch felt Side left Reps/Minutes 2' Comments Cued to PPT Wag the Tail Side bilateral Reps/Minutes 2-3 SH x 10 Comments Moves better tilt to left, stiff R hip. Cat/Cow Other Exercise Name Cat/neutral cow Reps/Minutes 5 SH x 10 each Comments Cued to not go so deep into trunk ext and flex in LB. Child's Pose Other Exercise Name Child's Pose Reps/Minutes 1' Therapeutic Activity Therapeutic Activity Transfer training Name sit<>supine Reps/Minutes 4' x 2 Comments Throughout treatment, pt practiced transfers. Manual Therapy Treatment Soft Tissue Mobilization Iliopsoas release Body Location Emre Iliopsoas release. Mobilization Type Sustained Pressure Body Position Supine Comments Followed up by 15 SL jasmyne. Tighter on L side Self-Care/Home Management Treatment Activities Self-Care/Home Management Activities I/S pt to do standing Trunk: R SB and R rot stretch. PT-OP-T Assessment and Plan Start: 06/10/23 18:37 Freq: Status: Active Protocol: Document 08/02/23 07:33 LRN (Rec: 08/02/23 08:18 LRN [id number]) Physical Therapy Assessment Goals Four Impairment R lower sacral pain Impairment Standing Trunk AROM (in deg's) : Rot 10 R, 25 L; SB 10 R, 20 L. Short Term Goal (STG) Improve trunk mobility symmetry. 08/02/23: Rot (sitting): 40 R , 45 L; SB (standing) 13 R, 25 L. STG Duration No change. Patient Support Associate Goal (LTG) Eliminate R lower sacral pain onset during daily activities and management of pain with a mobility/stabilization program . 07/18/23: R sacral pain with akward movements and with strenous activity (running). No pain with kids at home and at work. LTG Duration 12 wks-09/09/23 progressing 07/18/23 Two Impairment Stress urinary incontinence with lifting. Impairment Urinary incontinence when bladder full with cough, sneeze, laugh. Short Term Goal (STG) Pt will be educated in Kegels and aggrevator PF strengthening exercises. 06/16/23: Pt educated in quick and long hold Kegel contractions. 07/29/23: Pt educated in Aggrevator PF strengthening ex . STG Duration 6 wks-07/29/23 (07/29/23: MET GOAL) Residential Goal (LTG) Improve PF strength to eliminate stress urinary incontinence with lifting. 07/18/23: Leakage if bladder is full. LTG Duration 12 wks-09/09/23 One Impairment Pt lacks appropriate self care HEP Short Term Goal (STG) Pt will be educated in proper standing/sitting posture. 07/11/23: Discussed & educated pt in standing/ sitting posture. 07/18/23: Standing postural training against wall. STG Duration 6 wks-07/29/23 (07/11/23: MET GOAL) Patient Support Associate Goal (LTG) Pt will be educated in PF strengthening, and R hip/ pelvic & core stabilization and flexibility exercises. 07/29/23: HEP: Clamshell, hip AB (double on L) & Reverse Clamshell. Pt to do hip stretches bilaterally. LTG Duration 12 wks-09/09/23 progressed Assessment Summary Assessment 42 yo ER MD with resolved EUNICE; R SIJ pain with running; asymmetry of hip mobility and postural/positional changes of the pelvic region (doming noted). Today pt needs focus on posture and TA core stability, still needs to work on remembering to correct posture and start myofascial sling mvmts. Physical Therapy Plan Frequency and Duration Frequency of Treatment 1x/Week Duration of treatment (weeks) 12 Plan of Care Start Date 06/16/23 Plan of Care End Date 09/09/23 Next Visit Focus/Plan Next Note Type Treatment Note Next Visit Plan (Recheck trunk mobility for symmetry after stretching at end of July.) Next: Assess pt's urination times. Monitor & correct transfers to protect DR birch abdominal doming & educate in core pressure management. Pt education: aggrevator PF strengthening, Vemg assessment for PF strength and endurance , f/b PF strengthening. Pt education: Aggrevator Kegels, and Kegels in isolation of substitute ms. Manual: Ilioposas release, abdominal mobs Gait/run assessment and/or PF strengthening. Manual: Lower abdominal techniques, , Bladder, Cervix, EAS, core activation. Stretches: Hip: R piriformis R >L; Core R rot & SB, ?ext. R shoulder pecs and scapular retraction to normalize UE resting postion. Strengthening: Core to prevent abdominal doming, and reduce ribs protrusion, & hips : R (flex, AD), L (Ext, AB, ER ) GAIT/RUN training periodically with corrections in posture and hip/trunk mobility ( weakness hip AB's, R foot ER's on swing thru R>L, decr'd pelvic rot & hip ext R, greater L trunk rot, and R arm swing). Sacral Balancing as needed.
--- NOTE | 2023-08-29 17:24 | PT.OTN ---
Current Diagnoses Stiffness of unspecified hip, not elsewhere classified (08/29/23) Postural lordosis, site unspecified (08/29/23) Other specified disorders of muscle (08/29/23) Stress incontinence (female) (male) (08/29/23) Pelvic and perineal pain (08/29/23) Physical Therapy Treatment Note PT-OP-A Visit Information Start: 06/10/23 18:37 Freq: Status: Active Protocol: Document 08/29/23 08:20 LRN (Rec: 08/29/23 09:03 LRN [id number]) Out-Patient Physical Therapy Visit Information Visit Information Visit Type Progress Note Visit Start Time 08:20 Visit Stop Time 08:58 Visit Number 11/05 Evaluation Information Evaluation Date 06/16/23 Precautions Precautions 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 PT-OP-B Current Condition Start: 06/10/23 18:37 Freq: Status: Active Protocol: Document 06/16/23 07:33 LRN (Rec: 06/16/23 12:32 LRN [id number]) Current Condition History of Current Condition Onset Date 2017 Current Complaints Pain in L lower sacrum and a little urinary leakage with heavy lifting. History of Current Condition Pt reports during first she had pain in R side of lower sacrum and also had a litle light urinary incontinence. She currently has a little urinary incontinence if lifting heavy and if she doesn't urinate before running she will leak urine (on runs 2-5 miles). With running she reports sometimes the pelvis hurts running fast or downhill. She reports when bladder is full she leaks with coughing, sneezing and laughing. Prior Treatments and Tests None Developmental History Developmental History 2G, 2P. Both vaginal births ( 2017, 2019). Pt runs 3x/week. 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 Treatment Goals Patient/Caregiver Goals Decreased or eliminate R lower sacral pain. Decrease pelvic pain with downhill running or fast running. Eliminate stress urinary incontinence with lifting. 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 PT-OP-C Subjective Start: 06/10/23 18:37 Freq: Status: Active Protocol: Document 08/29/23 08:20 LRN (Rec: 08/29/23 09:03 LRN [id number]) OP-PT Subjective Patient Comments Patient Comments Not running regularly, feeling minimally, not every run. Running 2-3x/wk. Not feeling SIJ area. No issued with leaking. States times between voids are better. Would like to work on SIJ pain elimination. PT-OP-I Pelvic Floor Start: 06/10/23 18:37 Freq: Status: Active Protocol: Document 06/30/23 09:05 LRN (Rec: 06/30/23 09:48 LRN [id number]) Pelvic Floor Assessment Urine Pelvic Floor Surgery Yes, Hymenectomy Other Urinary Symptoms Urinary leakage if bladder is full. Leakage Size Small Leakage Cause Cough,Exercise,Lifting,Sneeze, Urge Leaks Per Day 2x/month Nocturia 1 Pads Used In 24 Hours 0 Bowel Other Bowel Symptoms On/off constipation and hemorrhoids. Bowel Movement Frequency 1-2 [place] Stool Chart Comments Types 3-4 Prolapse Uterine Prolapse Grade 1 Cystocele Grade 1 Rectocele Grade 1 Prolapse Comments Cystocele is only visible prolapse. PT-OP-J Posture/Palpation/Skin Start: 06/10/23 18:37 Freq: Status: Active Protocol: Document 08/29/23 08:20 LRN (Rec: 08/29/23 17:01 LRN [id number]) Posture Evaluation Comments Posture Comments L/S shifted to right. Palpation Assessment Location SIJ Palpation Location Emre SIJ in standing Palpation Details PSIS: L low ASIS: L is high Posterior rotated L innominate In supine L innominate appears anteriorly rotated with L ASIS low. PT-OP-K Range of Motion Start: 06/10/23 18:37 Freq: Status: Active Protocol: Document 08/29/23 08:20 LRN (Rec: 08/29/23 09:03 LRN [id number]) Lumbar Spine Range of Motion Lumbar Spine Active Degrees Testing Position Standing Rotation Left 25 Rotation Right 15 Lateral Flexion Left 23 Lateral Flexion Right 12 Comments Spine shifted to left. PT-OP-M Strength Start: 06/10/23 18:37 Freq: Status: Active Protocol: Document 07/29/23 09:09 LRN (Rec: 07/29/23 16:51 LRN [id number]) Hip Strength Hip Manual Muscle Testing Right Abduction 5 Normal External Rotation 5 Normal Internal Rotation 4+ Good+ Left Abduction 3 Fair External Rotation 4 Good Internal Rotation 4+ Good+ PT-OP-Q Treatments Start: 06/10/23 18:37 Freq: Status: Active Protocol: Document 08/29/23 08:20 LRN (Rec: 08/29/23 09:03 LRN [id number]) Therapeutic Exercises Supine Exercises Balta Single hands/knees push Side bilateral Reps/Minutes 5' Comments Monitor doming Emre hands/knees push Supine Exercise Name Balta hands/knee push Side bilateral Reps/Minutes 5' TA/heel slide Side bilateral Reps/Minutes 3' Comments Cued to monitor doming Sitting Exercises Trunk rot Sitting Exercise Name Trunk R rot stretch Side bilateral Reps/Minutes 3' Comments I/S HEP - R rot. AROM taken sitting. Standing Exercises Trunk AROM Standing Exercise Name Stretch: R Rot, R SB. Side bilateral Reps/Minutes 1-2 each Comments I/S HEP - Trunk R SB. AROM taken. Manual Therapy Treatment Joint Mobilizations L SIJ Joint L SIJ Direction Correcting a L posterior rot Body Position Supine Reps/Duration 3x Comments MFR/contract relax 6 sec holds Self-Care/Home Management Treatment Activities Self-Care/Home Management Activities Issued & reviewed HEP: SIJ dys - Phase I (correcting ) & Trunks stability: Balta hands/ knees push & I/S in balta rotation (single hand/knees push) PT-OP-T Assessment and Plan Start: 06/10/23 18:37 Freq: Status: Active Protocol: Document 08/29/23 08:20 LRN (Rec: 08/29/23 09:03 LRN [id number]) Physical Therapy Assessment Rehab Potential Rehabilitation Potential Excellent Evaluation Complexity Number of Personal Factors/Comorbidities 1-2 Number of Body Systems Impaired 4 or More Clinical Presentation at Evaluation Evolving Impairments Impairments Activity Tolerance,Pain, Posture,ROM,Soft Tissue Mobility,Strength,Transfers Goals Four Impairment R lower sacral pain Impairment Standing Trunk AROM (in deg's) : Rot 10 R, 25 L; SB 10 R, 20 L. Short Term Goal (STG) Improve trunk mobility symmetry. 08/02/23: Rot (sitting): 40 R , 45 L; SB (standing) 13 R, 25 L. 08/29/23: Rot (standing): 15L , 25 R; SB (standing) 12 R, 23 L. STG Duration 4 wks-09/26/23 Molder Machine Goal (LTG) Eliminate R lower sacral pain onset during daily activities and management of pain with a mobility/stabilization program . 07/18/23: R sacral pain with akward movements and with strenous activity (running). No pain with kids at home and at work. LTG Duration 8 wks-10/24/23 progressing 07/18/23 Three Impairment Pelvic pain with downhill or fast running if not first urinating. Short Term Goal (STG) Pt will be educated in appropriate fluid management prior to running. 07/04/23: Pt educated in proper fluid management for her weight. 06/18/23: R sacral pain downhill, & level. STG Duration 6 wks-07/29/23 (07/04/23: MET GOAL) [facility] Goal (LTG) Pt will be able to eliminate leakage with downhill or fast running with modification of fluid managment before running . 07/18/23: No urinary leakage with running if voids before running. LTG Duration 12 wks-09/09/23 (07/18/23: MET GOAL). Two Impairment Stress urinary incontinence with lifting. Impairment Urinary incontinence when bladder full with cough, sneeze, laugh. Short Term Goal (STG) Pt will be educated in Kegels and aggrevator PF strengthening exercises. 06/16/23: Pt educated in quick and long hold Kegel contractions. 07/29/23: Pt educated in Aggrevator PF strengthening ex . STG Duration 6 wks-07/29/23 (07/29/23: MET GOAL) Molder Machine Goal (LTG) Improve PF strength to eliminate stress urinary incontinence with lifting. 07/18/23: Leakage if bladder is full. 08/29/23: Pt reports not really leaking with lifting. LTG Duration 12 wks-09/09/23 - (08/29/23: MET GOAL) One Impairment Pt lacks appropriate self care HEP Short Term Goal (STG) Pt will be educated in proper standing/sitting posture. 07/11/23: Discussed & educated pt in standing/ sitting posture. 07/18/23: Standing postural training against wall. STG Duration 6 wks-07/29/23 (07/11/23: MET GOAL) Molder Machine Goal (LTG) Pt will be educated in PF strengthening, and R hip/ pelvic & core stabilization and flexibility exercises. 07/29/23: HEP: Clamshell, hip AB (double on L) & Reverse Clamshell. Pt to do hip stretches bilaterally. LTG Duration 12 wks-09/09/23 (08/29/23: MET GOAL) Assessment Summary Assessment 42 yo ER with resolved EUNICE; R SIJ pain with running; asymmetry of hip mobility and postural/positional changes of the pelvic region (doming noted). The pt has not improved in her Urgency/ frequency as she notes she doesn't have time to drink fluids; therefore urgency persist. She demonstrates weakness of her core muscles with doming visible with head lift and transfers. In standing, her L innominate is posteriorly rotated, but corrected with manual mobilization. I believe she has instability due to core ( TA weakness), and postural changes (shift of L/S to left ) and pelvic weakness. DR has been shallow 1 above and below umbilicus (1.5 cm width) . The pt has not been able to attend regularly due to scheduling difficulties with her job and clinic schedule; therefore the pt would benefit from continued skilled physical therapy to achieve the above stated not met goal. Physical Therapy Plan Frequency and Duration Frequency of Treatment 1x/Week Duration of treatment (weeks) 8 Plan of Care Start Date 08/29/23 Plan of Care End Date 10/24/23 Therapeutic Interventions Therapeutic Interventions Home Exercise Program,Joint Mobilizations,Manual Therapy, Neuromuscular Re-education, Self-Care/Home Management,Soft Tissue Mobilization,Taping, Therapeutic Activities, Therapeutic Exercises Modalities Biofeedback,Electric Stimulation Next Visit Focus/Plan Next Note Type Treatment Note Next Visit Plan Assess pt's urination times. Monitor & correct transfers to protect DR against abdominal doming & educate in core pressure management. Check coccyx positioning & SIJ-phase I correction. JMT to L/S for SB mobility to R. Pt education: aggrevator PF strengthening, Vemg assessment for PF strength and endurance , f/b PF strengthening. Pt education: Aggrevator Kegels, and Kegels in isolation of substitute ms. Manual: Ilioposas release, abdominal mobs Gait/run assessment and/or PF strengthening. Manual: Lower abdominal techniques, , Bladder, Cervix, EAS, core activation. Stretches: Hip: R piriformis R >L; Core R rot & SB, ?ext. R shoulder pecs and scapular retraction to normalize UE resting postion. Strengthening: Core to prevent abdominal doming, and reduce ribs protrusion, & hips : R (flex, AD), L (Ext, AB, ER ) GAIT/RUN training periodically with corrections in posture and hip/trunk mobility ( weakness hip AB's, R foot ER's on swing thru R>L, decr'd pelvic rot & hip ext R, greater L trunk rot, and R arm swing). Sacral Balancing as needed.
--- NOTE | 2023-09-05 15:58 | PT.OTN ---
Current Diagnoses Stiffness of unspecified hip, not elsewhere classified (09/05/23) Postural lordosis, site unspecified (09/05/23) Other specified disorders of muscle (09/05/23) Stress incontinence (female) (male) (09/05/23) Pelvic and perineal pain (09/05/23) Physical Therapy Treatment Note PT-OP-A Visit Information Start: 06/10/23 18:37 Freq: Status: Active Protocol: Document 09/05/23 08:20 LRN (Rec: 09/05/23 09:08 LRN [id number]) Out-Patient Physical Therapy Visit Information Visit Information Visit Type Treatment Note Visit Note 1 after PN Visit Start Time 08:20 Visit Stop Time 09:01 Visit Number 12/06 Evaluation Information Evaluation Date 06/16/23 Precautions Precautions 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 PT-OP-B Current Condition Start: 06/10/23 18:37 Freq: Status: Active Protocol: Document 06/16/23 07:33 LRN (Rec: 06/16/23 12:32 LRN [id number]) Current Condition History of Current Condition Onset Date 2017 Current Complaints Pain in L lower sacrum and a little urinary leakage with heavy lifting. History of Current Condition Pt reports during first she had pain in R side of lower sacrum and also had a litle light urinary incontinence. She currently has a little urinary incontinence if lifting heavy and if she doesn't urinate before running she will leak urine (on runs 2-5 miles). With running she reports sometimes the pelvis hurts running fast or downhill. She reports when bladder is full she leaks with coughing, sneezing and laughing. Prior Treatments and Tests None Developmental History Developmental History 2G, 2P. Both vaginal births ( 2017, 2019). Pt runs 3x/week. 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 Treatment Goals Patient/Caregiver Goals Decreased or eliminate R lower sacral pain. Decrease pelvic pain with downhill running or fast running. Eliminate stress urinary incontinence with lifting. 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 PT-OP-C Subjective Start: 06/10/23 18:37 Freq: Status: Active Protocol: Document 09/05/23 08:20 LRN (Rec: 09/05/23 09:08 LRN [id number]) OP-PT Subjective Patient Comments Patient Comments States she is tired from working nights. No EUNICE. Hasn 't had R SIJ pain because hasn 't done much,just working. PT-OP-I Pelvic Floor Start: 06/10/23 18:37 Freq: Status: Active Protocol: Document 06/30/23 09:05 LRN (Rec: 06/30/23 09:48 LRN [id number]) Pelvic Floor Assessment Urine Pelvic Floor Surgery Yes, Hymenectomy Other Urinary Symptoms Urinary leakage if bladder is full. Leakage Size Small Leakage Cause Cough,Exercise,Lifting,Sneeze, Urge Leaks Per Day 2x/month Nocturia 1 Pads Used In 24 Hours 0 Bowel Other Bowel Symptoms On/off constipation and hemorrhoids. Bowel Movement Frequency 1-2 [place] Stool Chart Comments Types 3-4 Prolapse Uterine Prolapse Grade 1 Cystocele Grade 1 Rectocele Grade 1 Prolapse Comments Cystocele is only visible prolapse. PT-OP-J Posture/Palpation/Skin Start: 06/10/23 18:37 Freq: Status: Active Protocol: Document 08/29/23 08:20 LRN (Rec: 08/29/23 17:01 LRN [id number]) Posture Evaluation Comments Posture Comments L/S shifted to right. Palpation Assessment Location SIJ Palpation Location Emre SIJ in standing Palpation Details PSIS: L low ASIS: L is high Posterior rotated L innominate In supine L innominate appears anteriorly rotated with L ASIS low. PT-OP-K Range of Motion Start: 06/10/23 18:37 Freq: Status: Active Protocol: Document 08/29/23 08:20 LRN (Rec: 08/29/23 09:03 LRN [id number]) Lumbar Spine Range of Motion Lumbar Spine Active Degrees Testing Position Standing Rotation Left 25 Rotation Right 15 Lateral Flexion Left 23 Lateral Flexion Right 12 Comments Spine shifted to left. PT-OP-M Strength Start: 06/10/23 18:37 Freq: Status: Active Protocol: Document 07/29/23 09:09 LRN (Rec: 07/29/23 16:51 LRN [id number]) Hip Strength Hip Manual Muscle Testing Right Abduction 5 Normal External Rotation 5 Normal Internal Rotation 4+ Good+ Left Abduction 3 Fair External Rotation 4 Good Internal Rotation 4+ Good+ PT-OP-Q Treatments Start: 06/10/23 18:37 Freq: Status: Active Protocol: Document 09/05/23 08:20 LRN (Rec: 09/05/23 09:08 LRN [id number]) Therapeutic Exercises Standing Exercises Balta lat trunk Standing Exercise Name Step outs Side bilateral Equipment Used Lev 3 TB Reps/Minutes 3 step outs and bacl Comments Pt needed cuing to engage TA during ex and especially at return to start Trunk strengthening Standing Exercise Name Trunk rotation Side bilateral Equipment Used Lev 2 TB Reps/Minutes 4' Comments Phys cuing given to lower rotators Manual Therapy Treatment Joint Mobilizations Sacral balancing Comments Sacral sulcus: L slightly limited w/inferior glide, L side decreased PA Sacrum: Decreased shear to R. L GABRIELLE Decreased PA & L Ischial Tub w/PA glide. 6 pt balancing L SIJ Joint L SIJ Direction Correcting a L posterior rot Body Position Supine Reps/Duration 3x Self-Care/Home Management Treatment Activities Self-Care/Home Management Activities I/S pt in doing HEP: Emre LE Bridging, Emre hands/knees push , 2-3 reps: sidestepping and trunk rot to focus on engaging the lower TA/trunk rotators. Lev 3 TB issued for use at work. PT-OP-T Assessment and Plan Start: 06/10/23 18:37 Freq: Status: Active Protocol: Document 09/05/23 08:20 LRN (Rec: 09/05/23 09:08 LRN [id number]) Physical Therapy Assessment Goals Four Impairment R lower sacral pain Impairment Standing Trunk AROM (in deg's) : Rot 10 R, 25 L; SB 10 R, 20 L. Short Term Goal (STG) Improve trunk mobility symmetry. 08/02/23: Rot (sitting): 40 R , 45 L; SB (standing) 13 R, 25 L. 08/29/23: Rot (standing): 15L , 25 R; SB (standing) 12 R, 23 L. STG Duration 4 wks-09/26/23 Drama Professor Goal (LTG) Eliminate R lower sacral pain onset during daily activities and management of pain with a mobility/stabilization program . 07/18/23: R sacral pain with akward movements and with strenous activity (running). No pain with kids at home and at work. 09/05/23: No c/o pain, but hasn't been exercising due to working nights. LTG Duration 8 wks-10/24/23 progressing 09/05/23 Three Impairment Pelvic pain with downhill or fast running if not first urinating. Short Term Goal (STG) Pt will be educated in appropriate fluid management prior to running. 07/04/23: Pt educated in proper fluid management for her weight. 06/18/23: R sacral pain downhill, & level. STG Duration 6 wks-07/29/23 (07/04/23: MET GOAL) Drama Professor Goal (LTG) Pt will be able to eliminate leakage with downhill or fast running with modification of fluid managment before running . 07/18/23: No urinary leakage with running if voids before running. LTG Duration 12 wks-09/09/23 (07/18/23: MET GOAL). Two Impairment Stress urinary incontinence with lifting. Impairment Urinary incontinence when bladder full with cough, sneeze, laugh. Short Term Goal (STG) Pt will be educated in Kegels and aggrevator PF strengthening exercises. 06/16/23: Pt educated in quick and long hold Kegel contractions. 07/29/23: Pt educated in Aggrevator PF strengthening ex . STG Duration 6 wks-07/29/23 (07/29/23: MET GOAL) Drama Professor Goal (LTG) Improve PF strength to eliminate stress urinary incontinence with lifting. 07/18/23: Leakage if bladder is full. 08/29/23: Pt reports not really leaking with lifting. LTG Duration 12 wks-09/09/23 - (08/29/23: MET GOAL) One Impairment Pt lacks appropriate self care HEP Short Term Goal (STG) Pt will be educated in proper standing/sitting posture. 07/11/23: Discussed & educated pt in standing/ sitting posture. 07/18/23: Standing postural training against wall. STG Duration 6 wks-07/29/23 (07/11/23: MET GOAL) Group Home Goal (LTG) Pt will be educated in PF strengthening, and R hip/ pelvic & core stabilization and flexibility exercises. 07/29/23: HEP: Clamshell, hip AB (double on L) & Reverse Clamshell. Pt to do hip stretches bilaterally. 09/05/23: Trunk rotation & latera trunk strengthening LTG Duration 12 wks-09/09/23 (09/05/23: MET GOAL) Assessment Summary Assessment 42 yo ER MD with resolved EUNICE; R SIJ pain with running; asymmetry of hip mobility and postural/positional changes of the pelvic region (doming noted); urgency persists as she has poor fluid mgmt at work. Today,not good release of L Ischial tub with sacral balancing; therefore not able to complete pubic balancing; SIJ leg length corrected. Pt has very poor lower TA strength; lacks tightening with rotation. Physical Therapy Plan Frequency and Duration Frequency of Treatment 1x/Week Duration of treatment (weeks) 8 Plan of Care Start Date 08/29/23 Plan of Care End Date 10/24/23 Next Visit Focus/Plan Next Note Type Treatment Note Next Visit Plan Next: R SIJ pain resolution ( L SIJ stiff). Assess pt's urination times. Monitor & correct transfers to protect DR against abdominal doming & educate in core pressure management. Check coccyx positioning & SIJ -phase I correction. Manual : Ilioposas release, abdominal mobs, Bladder, Cervix, EAS, core activation. JMT to L/S for SB mobility to R if needed. Pt education: aggrevator PF strengthening, Vemg assessment for PF strength and endurance , f/b PF strengthening. Pt education (if needed): Aggrevator Kegels, and Kegels in isolation of substitute ms. Stretches: Hip: R piriformis R >L; Core R rot & SB, ?ext. R shoulder pecs and scapular retraction to normalize UE resting postion. Strengthening: Cont Core to prevent abdominal doming, and reduce ribs protrusion, & hips : R (flex, AD), L (Ext, AB, ER ) GAIT/RUN training periodically with corrections in posture and hip/trunk mobility ( weakness hip AB's, R foot ER's on swing thru R>L, decr'd pelvic rot & hip ext R, greater L trunk rot, and R arm swing). PF strengthening & Sacral Balancing as needed.
--- NOTE | 2023-09-23 17:29 | PT.OTN ---
Current Diagnoses Stiffness of unspecified hip, not elsewhere classified (09/23/23) Postural lordosis, site unspecified (09/23/23) Other specified disorders of muscle (09/23/23) Stress incontinence (female) (male) (09/23/23) Pelvic and perineal pain (09/23/23) Physical Therapy Treatment Note PT-OP-A Visit Information Start: 06/10/23 18:37 Freq: Status: Active Protocol: Document 09/23/23 08:22 LRN (Rec: 09/23/23 09:21 LRN [id number]) Out-Patient Physical Therapy Visit Information Visit Information Visit Type Treatment Note Visit Note 2 after PN Visit Start Time 08:20 Visit Stop Time 09:04 Visit Number 01/05 Evaluation Information Evaluation Date 06/16/23 Precautions Precautions 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 PT-OP-B Current Condition Start: 06/10/23 18:37 Freq: Status: Active Protocol: Document 06/16/23 07:33 LRN (Rec: 06/16/23 12:32 LRN [id number]) Current Condition History of Current Condition Onset Date 2017 Current Complaints Pain in L lower sacrum and a little urinary leakage with heavy lifting. History of Current Condition Pt reports during first she had pain in R side of lower sacrum and also had a litle light urinary incontinence. She currently has a little urinary incontinence if lifting heavy and if she doesn't urinate before running she will leak urine (on runs 2-5 miles). With running she reports sometimes the pelvis hurts running fast or downhill. She reports when bladder is full she leaks with coughing, sneezing and laughing. Prior Treatments and Tests None Developmental History Developmental History 2G, 2P. Both vaginal births ( 2017, 2019). Pt runs 3x/week. 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 Treatment Goals Patient/Caregiver Goals Decreased or eliminate R lower sacral pain. Decrease pelvic pain with downhill running or fast running. Eliminate stress urinary incontinence with lifting. 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 PT-OP-C Subjective Start: 06/10/23 18:37 Freq: Status: Active Protocol: Document 09/23/23 08:22 LRN (Rec: 09/23/23 09:21 LRN [id number]) OP-PT Subjective Patient Comments Patient Comments SIJ has felt good. Neck/L upper shoulder has been tight, but much better, a little tight, after last treatment. PT-OP-I Pelvic Floor Start: 06/10/23 18:37 Freq: Status: Active Protocol: Document 06/30/23 09:05 LRN (Rec: 06/30/23 09:48 LRN [id number]) Pelvic Floor Assessment Urine Pelvic Floor Surgery Yes, Hymenectomy Other Urinary Symptoms Urinary leakage if bladder is full. Leakage Size Small Leakage Cause Cough,Exercise,Lifting,Sneeze, Urge Leaks Per Day 2x/month Nocturia 1 Pads Used In 24 Hours 0 Bowel Other Bowel Symptoms On/off constipation and hemorrhoids. Bowel Movement Frequency 1-2 [place] Stool Chart Comments Types 3-4 Prolapse Uterine Prolapse Grade 1 Cystocele Grade 1 Rectocele Grade 1 Prolapse Comments Cystocele is only visible prolapse. PT-OP-J Posture/Palpation/Skin Start: 06/10/23 18:37 Freq: Status: Active Protocol: Document 08/29/23 08:20 LRN (Rec: 08/29/23 17:01 LRN [id number]) Posture Evaluation Comments Posture Comments L/S shifted to right. Palpation Assessment Location SIJ Palpation Location Emre SIJ in standing Palpation Details PSIS: L low ASIS: L is high Posterior rotated L innominate In supine L innominate appears anteriorly rotated with L ASIS low. PT-OP-K Range of Motion Start: 06/10/23 18:37 Freq: Status: Active Protocol: Document 08/29/23 08:20 LRN (Rec: 08/29/23 09:03 LRN [id number]) Lumbar Spine Range of Motion Lumbar Spine Active Degrees Testing Position Standing Rotation Left 25 Rotation Right 15 Lateral Flexion Left 23 Lateral Flexion Right 12 Comments Spine shifted to left. PT-OP-M Strength Start: 06/10/23 18:37 Freq: Status: Active Protocol: Document 07/29/23 09:09 LRN (Rec: 07/29/23 16:51 LRN [id number]) Hip Strength Hip Manual Muscle Testing Right Abduction 5 Normal External Rotation 5 Normal Internal Rotation 4+ Good+ Left Abduction 3 Fair External Rotation 4 Good Internal Rotation 4+ Good+ PT-OP-Q Treatments Start: 06/10/23 18:37 Freq: Status: Active Protocol: Document 09/23/23 08:22 LRN (Rec: 09/23/23 09:21 LRN [id number]) Therapeutic Exercises Supine Exercises Emre hands/knees push Supine Exercise Name Balta hands/knee push Side bilateral Reps/Minutes 5' Standing Exercises Trunk strengthening Standing Exercise Name Trunk rotation Side bilateral Equipment Used Lev 3 TB Reps/Minutes 9' Comments Phys cuing given to R>Llower rotators Manual Therapy Treatment Soft Tissue Mobilization Sacral Balancing Body Location Sacrum/innominate - pt needed cuing to log roll onto plinth Mobilization Type Sustained Pressure Intensity/Depth Moderate Body Position Prone & sup Comments 22' Sacral sulcus: L slightly limited w/inferior glide, L side decreased PA Sacrum: Decreased shear to R. L GABRIELLE Decreased PA, L Ischial Tub slight w/PA glide. 6 pt balancing Joint Mobilizations R SIJ Joint R SIJ Direction Correction of R outflare Body Position Supine Reps/Duration 8' Comments Correction complete bbbb PT-OP-T Assessment and Plan Start: 06/10/23 18:37 Freq: Status: Active Protocol: Document 09/23/23 08:22 LRN (Rec: 09/23/23 09:21 LRN [id number]) Physical Therapy Assessment Goals Four Impairment R lower sacral pain Impairment Standing Trunk AROM (in deg's) : Rot 10 R, 25 L; SB 10 R, 20 L. Short Term Goal (STG) Improve trunk mobility symmetry. 08/02/23: Rot (sitting): 40 R , 45 L; SB (standing) 13 R, 25 L. 08/29/23: Rot (standing): 15L , 25 R; SB (standing) 12 R, 23 L. STG Duration 4 wks-09/26/23 Fdc Goal (LTG) Eliminate R lower sacral pain onset during daily activities and management of pain with a mobility/stabilization program . 07/18/23: R sacral pain with akward movements and with strenous activity (running). No pain with kids at home and at work. 09/05/23: No c/o pain, but hasn't been exercising due to working nights. 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 LTG Duration 8 wks-10/24/23 progressing 09/23/23 One Impairment Pt lacks appropriate self care HEP Short Term Goal (STG) Pt will be educated in proper standing/sitting posture. 07/11/23: Discussed & educated pt in standing/ sitting posture. 07/18/23: Standing postural training against wall. 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 07/29/23: HEP: Clamshell, hip AB (double on L) & Reverse Clamshell. Pt to do hip stretches bilaterally. 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 as she has poor fluid mgmt at work. Today, she had R innominate outflare and sacral balancing needed with good correction, but onset of tightness of T/S R paraspinals after treatment. Weakness of R trunk rotators noted during strengthening. Pt R hip popping x 2 during treatment. Physical Therapy Plan Frequency and Duration Frequency of Treatment 1x/Week Duration of treatment (weeks) 8 Plan of Care Start Date 08/29/23 Plan of Care End Date 10/24/23 Next Visit Focus/Plan Next Note Type Treatment Note Next Visit Plan Next: Update POC if pt to return after PT's return on vacation. Assess Trunk AROM ( STG 4) & check for R SIJ cont' d pain resolution (L SIJ stiff ). Assess pt's urination times & educate in core pressure management. Monitor & cue/review transfers to protect DR against abdominal doming. Check coccyx positioning & start SIJ-phase I correction. Manual: Ilioposas release, ? Bladder/ Cervix, ?EAS. JMT to L/S for SB mobility to R if needed. Pt education: aggrevator PF strengthening, Vemg assessment for PF strength and endurance , f/b PF strengthening. Pt education (if needed): Aggrevator Kegels, and Kegels in isolation of substitute ms. Stretches: Hip: R piriformis R >L; Core R rot & SB, ?ext. R shoulder pecs and scapular retraction to normalize UE resting postion. Strengthening: Cont Core to prevent abdominal doming, and reduce ribs protrusion, & hips : R (flex, AD), L (Ext, AB, ER ) GAIT/RUN training periodically with corrections in posture and hip/trunk mobility ( weakness hip AB's, R foot ER's on swing thru R>L, decr'd pelvic rot & hip ext R, greater L trunk rot, and R arm swing). PF strengthening & Sacral Balancing as needed. POC: Pelvic stab for EUNICE. Rx : R SIJ pn, sacral balance, core stab.
--- NOTE | 2023-11-07 14:08 | PT-OP ANOTE ---
Pt notified by phone that her Plan of Care has ; therefore she will need to be discharged from therapy. Recommended that if she feels she needs further therapy she can seek another referral from her physician.
--- NOTE | 2023-11-07 14:22 | PT.OPDS ---
Current Diagnoses Stiffness of unspecified hip, not elsewhere classified (09/23/23) Postural lordosis, site unspecified (09/23/23) Other specified disorders of muscle (09/23/23) Stress incontinence (female) (male) (09/23/23) Pelvic and perineal pain (09/23/23) Visit Care Team Role Provider Type Carisa Laura MD Attending Provider Physician Family Provider Primary Care Provider Referring Provider Specialty: [facility] Practice Address: [address] [place] [address], [place], [place], [facility] Email: [email or web address] Visit Number Visit Number 01/05 Discharge Summary PT-OP-B Current Condition Start: 06/10/23 18:37 Freq: Status: Active Protocol: Document 06/16/23 07:33 LRN (Rec: 06/16/23 12:32 LRN [id number]) Current Condition History of Current Condition Onset Date 2017 Current Complaints Pain in L lower sacrum and a little urinary leakage with heavy lifting. History of Current Condition Pt reports during first she had pain in R side of lower sacrum and also had a litle light urinary incontinence. She currently has a little urinary incontinence if lifting heavy and if she doesn't urinate before running she will leak urine (on runs 2-5 miles). With running she reports sometimes the pelvis hurts running fast or downhill. She reports when bladder is full she leaks with coughing, sneezing and laughing. Prior Treatments and Tests None Developmental History Developmental History 2G, 2P. Both vaginal births ( 2019). Pt runs 3x/week. 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 Treatment Goals Patient/Caregiver Goals Decreased or eliminate R lower sacral pain. Decrease pelvic pain with downhill running or fast running. Eliminate stress urinary incontinence with lifting. 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 PT-OP-C Subjective Start: 06/10/23 18:37 Freq: Status: Active Protocol: Document 09/23/23 08:22 LRN (Rec: 09/23/23 09:21 LRN [id number]) OP-PT Subjective Patient Comments Patient Comments SIJ has felt good. Neck/L upper shoulder has been tight, but much better, a little tight, after last treatment. PT-OP-I Pelvic Floor Start: 06/10/23 18:37 Freq: Status: Active Protocol: Document 06/30/23 09:05 LRN (Rec: 06/30/23 09:48 LRN [id number]) Pelvic Floor Assessment Urine Pelvic Floor Surgery Yes, Hymenectomy Other Urinary Symptoms Urinary leakage if bladder is full. Leakage Size Small Leakage Cause Cough,Exercise,Lifting,Sneeze, Urge Leaks Per Day 2x/month Nocturia 1 Pads Used In 24 Hours 0 Bowel Other Bowel Symptoms On/off constipation and hemorrhoids. Bowel Movement Frequency 1-2 [place] Stool Chart Comments Types 3-4 Prolapse Uterine Prolapse Grade 1 Cystocele Grade 1 Rectocele Grade 1 Prolapse Comments Cystocele is only visible prolapse. PT-OP-J Posture/Palpation/Skin Start: 06/10/23 18:37 Freq: Status: Active Protocol: Document 08/29/23 08:20 LRN (Rec: 08/29/23 17:01 LRN [id number]) Posture Evaluation Comments Posture Comments L/S shifted to right. Palpation Assessment Location SIJ Palpation Location Emre SIJ in standing Palpation Details PSIS: L low ASIS: L is high Posterior rotated L innominate In supine L innominate appears anteriorly rotated with L ASIS low. PT-OP-K Range of Motion Start: 06/10/23 18:37 Freq: Status: Active Protocol: Document 08/29/23 08:20 LRN (Rec: 08/29/23 09:03 LRN [id number]) Lumbar Spine Range of Motion Lumbar Spine Active Degrees Testing Position Standing Rotation Left 25 Rotation Right 15 Lateral Flexion Left 23 Lateral Flexion Right 12 Comments Spine shifted to left. PT-OP-M Strength Start: 06/10/23 18:37 Freq: Status: Active Protocol: Document 07/29/23 09:09 LRN (Rec: 07/29/23 16:51 LRN [id number]) Hip Strength Hip Manual Muscle Testing Right Abduction 5 Normal External Rotation 5 Normal Internal Rotation 4+ Good+ Left Abduction 3 Fair External Rotation 4 Good Internal Rotation 4+ Good+ PT-OP-T Assessment and Plan Start: 06/10/23 18:37 Freq: Status: Active Protocol: Document 11/07/23 14:11 LRN (Rec: 11/07/23 14:22 LRN [id number]) Physical Therapy Assessment Goals Four Impairment R lower sacral pain Impairment Standing Trunk AROM (in deg's) : Rot 10 R, 25 L; SB 10 R, 20 L. Short Term Goal (STG) Improve trunk mobility symmetry. 08/02/23: Rot (sitting): 40 R , 45 L; SB (standing) 13 R, 25 L. 08/29/23: Rot (standing): 15L , 25 R; SB (standing) 12 R, 23 L. 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 07/18/23: R sacral pain with akward movements and with strenous activity (running). No pain with kids at home and at work. 09/05/23: No c/o pain, but hasn't been exercising due to working nights. 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 LTG Duration 8 wks-10/24/23 progressing 09/23/23 Three Impairment Pelvic pain with downhill or fast running if not first urinating. Short Term Goal (STG) Pt will be educated in appropriate fluid management prior to running. 07/04/23: Pt educated in proper fluid management for her weight. 06/18/23: R sacral pain downhill, & level. STG Duration 6 wks-07/29/23 (07/04/23: MET GOAL) Overnight Houseperson Goal (LTG) Pt will be able to eliminate leakage with downhill or fast running with modification of fluid managment before running . 07/18/23: No urinary leakage with running if voids before running. LTG Duration 12 wks-09/09/23 (07/18/23: MET GOAL). Two Impairment Stress urinary incontinence with lifting. Impairment Urinary incontinence when bladder full with cough, sneeze, laugh. Short Term Goal (STG) Pt will be educated in Kegels and aggrevator PF strengthening exercises. 06/16/23: Pt educated in quick and long hold Kegel contractions. 07/29/23: Pt educated in Aggrevator PF strengthening ex . STG Duration 6 wks-07/29/23 (07/29/23: MET GOAL) Mcc Goal (LTG) Improve PF strength to eliminate stress urinary incontinence with lifting. 07/18/23: Leakage if bladder is full. 08/29/23: Pt reports not really leaking with lifting. LTG Duration 12 wks-09/09/23 - (08/29/23: MET GOAL) One Impairment Pt lacks appropriate self care HEP Short Term Goal (STG) Pt will be educated in proper standing/sitting posture. 07/11/23: Discussed & educated pt in standing/ sitting posture. 07/18/23: Standing postural training against wall. STG Duration 6 wks-07/29/23 (07/11/23: MET GOAL) Overnight Houseperson Goal (LTG) Pt will be educated in PF strengthening, and R hip/ pelvic & core stabilization and flexibility exercises. 07/29/23: HEP: Clamshell, hip AB (double on L) & Reverse Clamshell. Pt to do hip stretches bilaterally. 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 Initially she had mild asymmetry of hip mobility and postural/ positional changes of the pelvic region (doming) present ; and possible urgency, as she is not able to maintain good fluid mgmt while at work. At her last attended visit she had a R innominate outflare corrected with sacral balancing. The pt has weakness of her R trunk rotators and doming is present with core exercising. Pt also tends to transfer in a way to place more stress on her DR. The pt did well with therapy and has a home program of ex's that she could continue to work towards improving her pelvic and core stability. If further therapy she will need a new referral. We would be happy to work with this pleasant individual again. Physical Therapy Plan Discharge Physical Therapy Discharge Comments See assessment above. Thank you for your referral.
== END 2023-11-18 09:57 | disposition home or self-care (01) ==
LOC: PHYS 08:15
PROVIDERS: Family Provider Family Medicine; PCP Family Medicine; Referring Provider Family Medicine; Visit Provider Family Medicine
DX: M62.89 Other specified disorders of muscle (principal); N39.3 Stress incontinence (female) (male); R10.2 Pelvic and perineal pain; M25.659 Stiffness of unspecified hip, not elsewhere classified; M40.40 Postural lordosis, site unspecified
CPT/HCPCS: 97110; 97140; 97162; 97530; 97535

== ENCOUNTER → 2023-12-16 22:41 | Outpatient (CLI) | payer OTHER, SELFPAY | PROVIDERS: Family Provider Family Medicine; PCP Family Medicine; Referring Provider Internal Medicine; Visit Provider Internal Medicine | DX: Z23 Encounter for immunization (principal) | CPT/HCPCS: 90471; 90656 ==

== ENCOUNTER → 2024-05-16 12:50 | Outpatient (CLI) | payer OTHER, SELFPAY ==
--- NOTE | 2024-05-16 12:52 | DI.MG.S_ITS ---
MM screening mammo BI: 05/16/2024. BI-RADS: 1 CLINICAL: 43-year old female for bilateral screening mammogram. Tyrer-Cuzick lifetime risk of 14.3%. No personal or first-degree family history of breast cancer. Current reported family history of breast cancer: maternal grandmother and paternal grandmother. PRIOR EXAMS 05/05/2023, 03/22/2022. MAMMOGRAPHY TECHNIQUE: 2D and 3D (tomosynthesis) digital mammographic views obtained, with additional images as needed for full coverage. Current study was also evaluated with a Computer Aided Detection (CAD) system. DENSITY B. There are scattered areas of fibroglandular density. MAMMOGRAPHY FINDINGS Bilateral: No suspicious mass, asymmetry, microcalcification, or other abnormality seen. IMPRESSION: * No evidence of malignancy. RECOMMENDATIONS Bilateral * Annual screening mammography. OVERALL ASSESSMENT CATEGORY BI-RADS-1: Negative. The [employer] recommends annual screening mammography beginning at age 40 for women with average risk of breast cancer. ELECTRONICALLY SIGNED: Cade Middleton M.D. on 05/16/2024 at 01:52:00 PM Interpreting Station ID: [id number]
== END ==
PROVIDERS: Family Provider Family Medicine; PCP Family Medicine; Referring Provider Family Medicine; Visit Provider Family Medicine
DX: Z12.31 Encounter for screening mammogram for malignant neoplasm of breast (principal); Z80.3 Family history of malignant neoplasm of breast
CPT/HCPCS: 77063; 77067